=== PATIENT | male | born 1970 | race Two or more races ===

== ENCOUNTER 2018-12-29 17:10 | Inpatient (IN) | payer OTHER ==
[~2018-12-29] VITALS: Ht 165.1 cm; Wt 172.4 kg
--- NOTE | 2018-12-29 17:43 | NUR ---
ED Nurse Note: pt arrives from home via [facility] for c/o left shoulder area pain after having a heavy tool fall on it a few days ago.. lungs cta throughout. pt states he was also outside working a lot in heat and feels dehydrated. pt with voided dark yellow urine, sent to hold in lab. no other orders.
[2018-12-29] MEDS ORDERED: Aspirin Baby 81mg ORAL ONE (17:45)
[2018-12-29] MEDS ORDERED: Albuterol ud Inhalation HHN ONE (17:45)
--- NOTE | 2018-12-29 17:48 | NUR ---
ED Nurse Note: RT CALLED FOR BREATHING TX.
--- NOTE | 2018-12-29 17:50 | NUR ---
ED Nurse Note: pt noted to have yellow sclera bilat eyes and jaundice coloring to skin.
[2018-12-29 18:00] VITALS: BP 102/46
[2018-12-29] MEDS ORDERED: Morphine Sulfate 4mg/ml Inj (IV USE ONLY) IVP ONE (18:00)
--- NOTE | 2018-12-29 18:13 | Emergency Room Report ---
History of Present Illness General Chief Complaint: General Complaint Source: Patient Present Illness HPI Patient 48-year-old male brought in by EMS after increased chest discomfort. Patient reports having onset of symptoms approximate 4 days ago. He reports having a recent trauma to his chest and states that approximately 50 pound tiles fell to the left side of his chest and struck him. He reports having some increased difficulty with breathing. He reports having a prior history of chest discomfort which he describes as a central pressure. Allergies: Coded Allergies: No Known Allergies (Unverified , 12/29/18) Patient History Reviewed Nursing Documentation: PMH: Agreed; PSxH: Agreed Nursing Documentation-PMH Hx Asthma: Yes Review of Systems All Other Systems: negative except mentioned in HPI Physical Exam Vital Signs Date Time Temp Pulse Resp B/P (MAP) Pulse Ox O2 Delivery O2 Flow Rate FiO2 12/29/18 17:09 99.0 86 22 144/86 (105) 98 Room Air 12/29/18 17:45 21 Sp02 EP Interpretation: reviewed, normal General Appearance: normal inspection, alert, GCS 15, obese, Chronically Ill Head: atraumatic ENT: normal ENT inspection, hearing grossly normal, normal voice Neck: normal inspection, full range of motion, supple, no bony tend Respiratory: normal inspection, no respiratory distress, no retraction, wheezing Cardiovascular #1: regular rate, rhythm, no edema Gastrointestinal: normal inspection, normal bowel sounds, non tender, soft, no guarding, no hernia Genitourinary: no CVA tenderness Musculoskeletal: normal inspection, back normal, normal range of motion Neurologic: normal inspection, alert, oriented x3, responsive, station helper III-XII nml as tested, speech normal Psychiatric: normal inspection, judgement/insight normal, mood/affect normal Procedures Critical Care Time Critical Care Time Patient had a critical medical condition which untreated could potentially result in life or limb threatening injury. Total critical care time excluding procedures approximately 45 minutes. Medical Decision Making Diagnostic Impression: Primary Impression: ACS (acute coronary syndrome) Additional Impressions: Morbid obesity Anemia ER Course Patient presented for chest pain. Differential diagnosis include was not limited to myocardial infarction, peptic ulcer disease, aortic dissection, pulmonary embolism among others. Because of complexity of patient's case laboratory testing and imaging studies were ordered. Patient is noted to be short of breath as well as having chest discomfort. Patient was noted to have some recent trauma. X-ray imaging of the chest showed no evidence of fracture. Patient was given aspirin. Patient was noted to have some significant anemia and was admitted to the hospital for further monitoring and evaluation. Patient was typed and crossed for blood and was consented. Patient was discussed with Dr. Jerod Zuluaga for inpatient management due to panel physician Last Vital Signs Date Time Temp Pulse Resp B/P (MAP) Pulse Ox O2 Delivery O2 Flow Rate FiO2 12/29/18 17:59 80 18 99 Room Air 21 12/29/18 17:09 99.0 144/86 (105) Status: unchanged Disposition: ADMITTED INPATIENT Condition: Serious Referrals: NON PHYSICIAN (PCP) Britton Tariq MD Dec 29, 2018 18:13
--- NOTE | 2018-12-29 18:21 | NUR ---
ED Nurse Note: pt to radiology dept for further studies.
[2018-12-29 18:27] LABS: HEMATOCRIT 18.5 % (42.0-52.0); MEAN CORPUSCULAR VOLUME 120 FL (80-99); PLATELET COUNT 99 K/UL (150-450); RED BLOOD COUNT 1.54 M/UL (4.70-6.10); RED CELL DISTRIBUTION WIDTH 17.1 % (11.6-14.8); WHITE BLOOD COUNT 3.6 K/UL (4.8-10.8)
[2018-12-29 18:29] LABS: ANION GAP 10 mmol/L (5-15); BLOOD UREA NITROGEN 13 mg/dL (7-18); CALCIUM 8.8 MG/DL (8.5-10.1); CARBON DIOXIDE 25 MMOL/L (21-32); CHLORIDE 105 MMOL/L (98-107); POTASSIUM 3.7 MMOL/L (3.5-5.1); SODIUM 140 MMOL/L (136-145)
--- NOTE | 2018-12-29 18:37 | NUR ---
ED Nurse Note: pt returned from radiology
[2018-12-29 18:42] LABS: ALANINE AMINOTRANSFERASE 57 U/L (12-78); ALBUMIN 3.7 G/DL (3.4-5.0); ALBUMIN/GLOBULIN RATIO 1.2 (1.0-2.7); ALKALINE PHOSPHATASE 69 U/L (46-116); ASPARTATE AMINO TRANSFERASE 67 U/L (15-37); CKMB 0.7 NG/ML (0.0-3.6); CREATINE KINASE 108 U/L (26-308)
[2018-12-29 18:43] LABS: BILIRUBIN,DIRECT 0.6 MG/DL (0.0-0.3)
--- NOTE | 2018-12-29 18:51 | NUR ---
ED Nurse Note: michael bautista [facility] [phone]
--- NOTE | 2018-12-29 19:02 | NUR ---
ED Nurse Note: pt relates headache has decreased. no new c/o aware to remain npo until labs/radiology reuslted.
--- NOTE | 2018-12-29 19:05 | NUR ---
ED Nurse Note: Patient in bed moaning, is very uncomfortable. Patient provided with warm blankets. Patient was also given water, verified with ERMD it was ok.
[2018-12-29 19:07] LABS: HEMOGLOBIN 6.9 G/DL (14.2-18.0)
[2018-12-29 19:51] LABS: HEMATOCRIT 18.3 % (42.0-52.0); MEAN CORPUSCULAR VOLUME 122 FL (80-99); PLATELET COUNT 93 K/UL (150-450); RED BLOOD COUNT 1.51 M/UL (4.70-6.10); RED CELL DISTRIBUTION WIDTH 15.9 % (11.6-14.8); WHITE BLOOD COUNT 3.7 K/UL (4.8-10.8)
[2018-12-29 19:56] LABS: HEMOGLOBIN 6.8 G/DL (14.2-18.0)
[2018-12-29] MEDS ORDERED: Morphine Sulfate 2mg/ml Inj(IV/IM USE ONLY) IVP PRN ×2 (20:15→22:30)
[2018-12-29] MEDS ORDERED: LORazepam Inj 2mg/ml 1ml IV PRN (20:15)
[2018-12-29] MEDS ORDERED: Zolpidem 5mg tab ORAL PRN (20:15)
[2018-12-29] MEDS ORDERED: Miralax 17gm pkt ORAL PRN ×2 (20:15→22:30)
[2018-12-29] MEDS ORDERED: Dextrose 50% 25ml Syringe IV PRN (20:30)
[2018-12-29 21:34] VITALS: BP 119/47
[2018-12-29 21:49] VITALS: BP 123/45
--- NOTE | 2018-12-29 22:05 | NUR ---
ED Nurse Note: Report called into [facility], prior to transport to floor. Patient accompanied by RN and ERtech at this time.
[2018-12-29 22:15] VITALS: BP 111/55
--- NOTE | 2018-12-29 22:15 | NUR ---
NURSE NOTES: Received pt from ED via gurney. Pt is alert, AOx4. In no acute distress. IV line intact and patent. Pt is currently receiving 1 unit of PRBC from ED. VS stable. Placed pt on satellite project site monitor showing SR. Oriented pt to room and unit. Bed in lowest position, call light within reach. Admission orders noted and carried out.
[2018-12-29] MEDS ORDERED: dilTIAZem HCl 25mg/5ml Inj IV PRN (22:30)
[2018-12-29] MEDS ORDERED: Nitroglycerin Subl 0.4mg tab SL PRN (22:30)
[2018-12-29] MEDS ORDERED: Albuterol/Ipratropium 3ml neb HHN PRN (22:30)
[2018-12-29] MEDS ORDERED: Enalaprilat 2.5mg/2ml Inj IV PRN (22:30)
[2018-12-30] VITALS: BP 118/68
[2018-12-30] MEDS ORDERED: BENAZEPRIL HCL20 MG ORAL (00:02)
--- NOTE | 2018-12-30 01:05 | NUR ---
NURSE NOTES: Blood transfusion of 1 unit of PRBC completed. No reactions noted, VS stable.
[2018-12-30 04:00] VITALS: BP 102/42
--- NOTE | 2018-12-30 04:20 | NUR ---
NURSE NOTES: Blood transfusion of second unit of PRBC completed, for a total of 1 units. No reactions noted, VS stable.
[2018-12-30 06:48] LABS: HEMATOCRIT 22.6 % (42.0-52.0); HEMOGLOBIN 8.1 G/DL (14.2-18.0); MEAN CORPUSCULAR VOLUME 113 FL (80-99); PLATELET COUNT 91 K/UL (150-450); RED BLOOD COUNT 2.01 M/UL (4.70-6.10); RED CELL DISTRIBUTION WIDTH 26.4 % (11.6-14.8); WHITE BLOOD COUNT 3.9 K/UL (4.8-10.8)
--- NOTE | 2018-12-30 07:00 | NUR ---
NURSE NOTES: Nurse report given by BAMBI Olivo. Patient was awake, complained that he wasn't able to sleep several nights. Patient showed SOB, but denied chest pain. Bed at lowest position and break engaged, call light within reach. IV site is patent and flushed well, no sign of redness or tenderness. Breakfast was at bedside.
[2018-12-30 07:12] LABS: ALANINE AMINOTRANSFERASE 61 U/L (12-78); ALBUMIN 3.3 G/DL (3.4-5.0); ALKALINE PHOSPHATASE 72 U/L (46-116); ANION GAP 7 mmol/L (5-15); ASPARTATE AMINO TRANSFERASE 64 U/L (15-37); BILIRUBIN,TOTAL 1.8 MG/DL (0.2-1.0); BLOOD UREA NITROGEN 13 mg/dL (7-18); CALCIUM 8.8 MG/DL (8.5-10.1); CARBON DIOXIDE 27 MMOL/L (21-32); CHLORIDE 107 MMOL/L (98-107); CHOLESTEROL 124 MG/DL (< 200); HDL CHOLESTEROL 22 MG/DL (40-60); POTASSIUM 4.1 MMOL/L (3.5-5.1); SODIUM 141 MMOL/L (136-145); TRIGLYCERIDES 99 MG/DL (30-150)
[2018-12-30 07:15] LABS: BILIRUBIN,DIRECT 0.6 MG/DL (0.0-0.3)
--- NOTE | 2018-12-30 07:15 | NUR ---
HAND-OFF: Report given to BAMBI Wahl.
[2018-12-30] MEDS ORDERED: Enalaprilat 1.25mg/ml Inj IV PRN (07:30)
--- NOTE | 2018-12-30 07:40 | NUR ---
NURSE NOTES: HEEL BUILDER MACHINE recorded a low blood pressure of 80s systolic fo this patient. Went into room to assess patient. Pt said he is "feeling better today." Asked the patient if he felt dizzy to which he said he did feel a little dizzy. Checked blood pressure on left arm - 140/70. Checked on right arm - 125/78. Instructed patient to call if he feels dizzy or lightheaded. Pt is stable.
[2018-12-30 08:00] VITALS: BP 125/68
[2018-12-30] MEDS ORDERED: Aspirin Baby 81mg ORAL SCH (09:00)
--- NOTE | 2018-12-30 09:15 | NUR ---
NURSE NOTES: Pt complaining of 8/10 chest pain. This is the same pain he has had since admission. Pt does not want morphine. He only wants tylenol for his pain. Asked if we should ask doctor for Rhodes, he said no. He only wants tylenol.
--- NOTE | 2018-12-30 10:22 | NUR ---
CASE MANAGEMENT: INITIAL REVIEW 48 YO M TERESA FROM HOME CC: CP. ARMENDARIZ DIAZ. PMHx: ASTHMA SI:CP. ACS. T 99 HR 86 RR 22 B/P 144/86 SATS 98% ON RA WBC 3.6 HGB 6.9 HCT 18.5 GLU 113 TBILI 2 DBILI 0.6 AST 67 BNP 723 U TOX (THC) IS: MORPHINE IV X1 ZOFRAN IV X1 ALBUTEROL HHN X1 ASA PO X1 PATIENT ADMITTED TO TELE 12/29/2018 @ 1836 DCP: PATIENT TO BE DISCHARGED TO HOME ONCE MEDICALLY CLEARED. PLAN OF CARE: TRANSFUSE PRBCs 2D ECHO SERIAL TROPONIN Addendum: 12/30/18 at 1301 by Lu Talbot CM INTERQUAL MET
--- NOTE | 2018-12-30 10:41 | GI Initial Consult Note ---
History of Present Illness General Date patient seen: Dec 30, 2018 Time patient seen: 10:36 Reason for Hospitalization: General Complaint Referring physician: SANDOR ZAMBRANO Reason for Consultation: ANEMIA Present Illness HPI Patient 48-year-old male brought in by EMS after increased chest discomfort. Patient reports having onset of symptoms approximate 4 days ago. He reports having a recent trauma to his chest and states that approximately 50 pound tiles fell to the left side of his chest and struck him. He reports having some increased difficulty with breathing. He reports having a prior history of chest discomfort which he describes as a central pressure. GI consulted for anemia. Patient seen, awake alert and oriented x4 no apparent distress. Patient was admitted for severe chest pain secondary to trauma. Labs reviewed showed hemoglobin is 6.8, total bilirubin of 1.8 with direct bilirubin of 0.6. Urine toxicity positive for marijuana. The patient has no history of endoscopic or colonoscopy. Home Meds Reported Medications Benazepril Hcl* (BENAZEPRIL HCL*) 20 Mg Tablet, 25 MG ORAL EVERY 12 HOURS, TAB 12/30/18 Med list reviewed/reconciled: Yes Allergies: Coded Allergies: No Known Allergies (Unverified , 12/29/18) Patient History History Provided By: Patient, Medical Record PMH Narrative Hx Asthma: Yes Hypertension Morbid obesity Social History: Reports: drug use Review of Systems All Other Systems: negative except mentioned in HPI Physical Exam Vital Signs Date Time Temp Pulse Resp B/P (MAP) Pulse Ox O2 Delivery O2 Flow Rate FiO2 12/29/18 17:09 99.0 86 22 144/86 (105) 98 Room Air 12/29/18 17:45 21 Sp02 EP Interpretation: reviewed, normal Labs Laboratory Tests Test 12/29/18 17:54 12/29/18 19:31 12/30/18 06:10 White Blood Count 3.6 K/UL (4.8-10.8) L 3.7 K/UL (4.8-10.8) L 3.9 K/UL (4.8-10.8) L Red Blood Count 1.54 M/UL (4.70-6.10) L 1.51 M/UL (4.70-6.10) L 2.01 M/UL (4.70-6.10) L Hemoglobin 6.9 G/DL (14.2-18.0) *L 6.8 G/DL (14.2-18.0) *L 8.1 G/DL (14.2-18.0) L Hematocrit 18.5 % (42.0-52.0) L 18.3 % (42.0-52.0) L 22.6 % (42.0-52.0) L Mean Corpuscular Volume 120 FL (80-99) H 122 FL (80-99) H 113 FL (80-99) H Mean Corpuscular Hemoglobin 44.9 PG (27.0-31.0) H 45.1 PG (27.0-31.0) H 40.3 PG (27.0-31.0) H Mean Corpuscular Hemoglobin Concent 37.5 G/DL (32.0-36.0) H 37.1 G/DL (32.0-36.0) H 35.8 G/DL (32.0-36.0) Red Cell Distribution Width 17.1 % (11.6-14.8) H 15.9 % (11.6-14.8) H 26.4 % (11.6-14.8) H Platelet Count 99 K/UL (150-450) L 93 K/UL (150-450) L 91 K/UL (150-450) L Mean Platelet Volume 8.6 FL (6.5-10.1) 7.1 FL (6.5-10.1) 7.5 FL (6.5-10.1) Neutrophils (%) (Auto) % (45.0-75.0) % (45.0-75.0) % (45.0-75.0) Lymphocytes (%) (Auto) % (20.0-45.0) % (20.0-45.0) % (20.0-45.0) Monocytes (%) (Auto) % (1.0-10.0) % (1.0-10.0) % (1.0-10.0) Eosinophils (%) (Auto) % (0.0-3.0) % (0.0-3.0) % (0.0-3.0) Basophils (%) (Auto) % (0.0-2.0) % (0.0-2.0) % (0.0-2.0) Differential Total Cells Counted 100 100 100 Neutrophils % (Manual) 46 % (45-75) 44 % (45-75) L 45 % (45-75) Lymphocytes % (Manual) 43 % (20-45) 41 % (20-45) 39 % (20-45) Monocytes % (Manual) 6 % (1-10) 7 % (1-10) 6 % (1-10) Eosinophils % (Manual) 3 % (0-3) 7 % (0-3) H 9 % (0-3) H Basophils % (Manual) 2 % (0-2) 1 % (0-2) 1 % (0-2) Band Neutrophils 0 % (0-8) 0 % (0-8) 0 % (0-8) Platelet Estimate Decreased L Decreased L Decreased L Platelet Morphology Normal Normal Normal Hypochromasia 2+ 2+ 2+ Anisocytosis 2+ 2+ 4+ Macrocytosis 1+ 2+ 3+ Prothrombin Time 10.7 SEC (9.30-11.50) 10.3 SEC (9.30-11.50) Prothromb Time International Ratio 1.0 (0.9-1.1) 1.0 (0.9-1.1) Activated Partial Thromboplast Time 25 SEC (23-33) 27 SEC (23-33) Sodium Level 140 MMOL/L (136-145) 141 MMOL/L (136-145) Potassium Level 3.7 MMOL/L (3.5-5.1) 4.1 MMOL/L (3.5-5.1) Chloride Level 105 MMOL/L (98-107) 107 MMOL/L (98-107) Carbon Dioxide Level 25 MMOL/L (21-32) 27 MMOL/L (21-32) Anion Gap 10 mmol/L (5-15) 7 mmol/L (5-15) Blood Urea Nitrogen 13 mg/dL (7-18) 13 mg/dL (7-18) Creatinine 1.0 MG/DL (0.55-1.30) 1.0 MG/DL (0.55-1.30) Estimat Glomerular Filtration Rate > 60 mL/min (>60) > 60 mL/min (>60) Glucose Level 113 MG/DL (74-106) H 108 MG/DL (74-106) H Calcium Level 8.8 MG/DL (8.5-10.1) 8.8 MG/DL (8.5-10.1) Total Bilirubin 2.0 MG/DL (0.2-1.0) H 1.8 MG/DL (0.2-1.0) H Direct Bilirubin 0.6 MG/DL (0.0-0.3) H 0.6 MG/DL (0.0-0.3) H Aspartate Amino Transf (AST/SGOT) 67 U/L (15-37) H 64 U/L (15-37) H Alanine Aminotransferase (ALT/SGPT) 57 U/L (12-78) 61 U/L (12-78) Alkaline Phosphatase 69 U/L (46-116) 72 U/L (46-116) Total Creatine Kinase 108 U/L (26-308) Creatine Kinase MB 0.7 NG/ML (0.0-3.6) Creatine Kinase MB Relative Index 0.6 Troponin I 0.000 ng/mL (0.000-0.056) 0.001 ng/mL (0.000-0.056) Pro-B-Type Natriuretic Peptide 723 pg/mL (0-125) H Total Protein 6.7 G/DL (6.4-8.2) 6.7 G/DL (6.4-8.2) Albumin 3.7 G/DL (3.4-5.0) 3.3 G/DL (3.4-5.0) L Globulin 3.0 g/dL 3.4 g/dL Albumin/Globulin Ratio 1.2 (1.0-2.7) 1.0 (1.0-2.7) Lipase 157 U/L (73-393) Urine Opiates Screen Negative (NEGATIVE) Urine Barbiturates Screen Negative (NEGATIVE) Phencyclidine (PCP) Screen Negative (NEGATIVE) Urine Amphetamines Screen Negative (NEGATIVE) Urine Benzodiazepines Screen Negative (NEGATIVE) Urine Cocaine Screen Negative (NEGATIVE) Urine Marijuana (THC) Screen Positive (NEGATIVE) H Nucleated Red Blood Cells 1 /100 WBC Spherocytes 2+ C-Reactive Protein, Quantitative 2.6 mg/dL (0.00-0.90) H Triglycerides Level 99 MG/DL (30-150) Cholesterol Level 124 MG/DL (< 200) LDL Cholesterol 87 mg/dL (<100) HDL Cholesterol 22 MG/DL (40-60) L Cholesterol/HDL Ratio 5.6 (3.3-4.4) H Thyroid Stimulating Hormone (TSH) 3.576 uiU/mL (0.358-3.740) General Appearance: well appearing, no apparent distress, alert, obese Head: normocephalic EENT: PERRL/EOMI, normal ENT inspection Neck: supple Respiratory: normal breath sounds, no respiratory distress Cardiovascular: normal rate Gastrointestinal: normal inspection, non tender, soft, normal bowel sounds, non -distended Rectal: deferred Genitourinary: deferred Musculoskeletal: normal inspection, back normal Neurologic: normal inspection, alert, oriented x3, responsive Psychiatric: normal inspection, judgement/insight normal, memory normal Skin: normal inspection, normal color, no rash, warm/dry, palpation normal, well hydrated Lymphatic: normal inspection, no adenopathy Current Medications Current Medications Medications (Trade) Dose Ordered Sig/Luci Route PRN Reason Start Time Stop Time Status Last Admin Dose Admin Acetaminophen (Tylenol) 650 mg Q4H PRN ORAL fever 12/29/18 20:15 01/28/19 20:14 12/30/18 08:56 Acetaminophen (Tylenol) 650 mg Q4H PRN ORAL FEVER 12/29/18 22:30 01/28/19 22:29 Albuterol/ Ipratropium (Albuterol/ Ipratropium) 3 ml EVERY 4 HOURS PRN HHN Shortness of Breath 12/29/18 22:30 01/03/19 22:29 Aspirin (ASA) 162 mg DAILY ORAL 12/30/18 09:00 01/29/19 08:59 12/30/18 08:49 Dextrose (Dextrose 50%) 25 ml Q30M PRN IV Hypoglycemia 12/29/18 20:30 01/28/19 20:18 Dextrose (Dextrose 50%) 50 ml Q30M PRN IV hypoglycemia 12/29/18 20:30 01/28/19 20:29 Diltiazem HCl (Cardizem) 10 mg EVERY HOUR PRN IV heart rate more than 120, 12/29/18 22:30 01/28/19 22:29 Enalaprilat (Vasotec) 2.5 mg Q6H PRN IV sbp more than 160 12/30/18 07:30 01/28/19 22:29 Heparin Sodium (Porcine) (Heparin 5000 units/ml) 5,000 units EVERY 12 HOURS SUBQ 12/30/18 09:00 01/29/19 08:59 UNV Lorazepam (Ativan 2mg/ml 1ml) 0.5 mg Q4H PRN IV For Anxiety 12/29/18 20:15 01/05/19 20:14 Morphine Sulfate (Morphine Sulfate) 1 mg Q4H PRN IVP For Pain 12/29/18 20:15 01/05/19 20:14 Morphine Sulfate (Morphine Sulfate) 2 mg EVERY 4 HOURS PRN IVP severe Pain (Pain Scale 7-10) 12/29/18 22:30 01/05/19 22:29 Nitroglycerin (Ntg) 0.4 mg Q5M PRN SL Prn Chest Pain 12/29/18 22:30 01/28/19 22:29 Ondansetron HCl (Zofran) 4 mg Q6H PRN IVP Nausea & Vomiting 12/29/18 20:15 01/28/19 20:14 Ondansetron HCl (Zofran) 4 mg Q6H PRN IVP Nausea & Vomiting 12/29/18 22:30 01/28/19 22:29 Polyethylene Glycol (Miralax) 17 gm DAILYPRN PRN ORAL Constipation 12/29/18 22:30 01/28/19 22:29 Polyethylene Glycol (Miralax) 17 gm HSPRN PRN ORAL Constipation 12/29/18 20:15 01/28/19 20:14 Temazepam (Restoril) 15 mg HSPRN PRN ORAL Insomnia 12/29/18 22:30 01/05/19 22:29 GI: Plan Problems: (1) Anemia (2) Morbid obesity (3) Marijuana user (4) Chest pain Plan Follow-up cardiac work-up Plan for EGD and colonoscopy tomorrow Maintain clear liquid diet, n.p.o. at midnight anemia work up OB stool r/o GI bleed monitor H&H, prn transfusions bowel regimen ppi pain mgmt fu labs We will follow with additional recommendations postprocedure Discussed with Dr. Harper. Thank you for this patient referral, we will follow. The patient was seen and examined at bedside and all new and available data was reviewed in the patients chart. I agree with the above findings, impression and plan. (Patient seen earlier today. Signature stamp does not reflect patient encounter time.). - MD Gina ShelbyHonorhealth Deer Valley Medical CenterErvin WRAY Dec 30, 2018 10:41
[2018-12-30 12:00] VITALS: BP 126/68
--- NOTE | 2018-12-30 12:33 | Consultation ---
History of Present Illness General Date patient seen: Dec 30, 2018 Chief Complaint: General Complaint Referring physician: SANDOR ZAMBRANO Reason for Consultation: ANEMIA Present Illness HPI 48-year-old male with hx of morbid obesity, HTN brought in by EMS with CC of chest discomfort, starting approximately 4 days ago. He reports having a recent trauma to his chest and states that approximately 50 pound tiles fell to the left side of his chest and struck him. He reports having some increased difficulty with breathing. He was found to be severely anemic and admitted to telemetry for further evaluation. Meanwhile he has received 2 units of prbc. Allergies: Coded Allergies: No Known Allergies (Unverified , 12/29/18) Medication History Scheduled Benazepril Hcl* (Benazepril Hcl*), 25 MG ORAL EVERY 12 HOURS, (Reported) Patient History Healthcare decision maker Resuscitation status Full Code Advanced Directive on File Past Medical/Surgical History Past Medical/Surgical History: (1) History of hypertension (2) Morbid obesity Review of Systems All Other Systems: negative except mentioned in HPI Physical Exam General Appearance: WD/WN Lines, tubes and drains: peripheral HEENT: normocephalic, atraumatic Neck: non-tender, normal alignment, supple Respiratory/Chest: chest wall non-tender, lungs clear Breasts: no masses Cardiovascular/Chest: normal peripheral pulses, regular rhythm Abdomen: normal bowel sounds Genitourinary/Rectal: normal genital exam Extremities: normal range of motion Last 24 Hour Vital Signs Date Time Temp Pulse Resp B/P (MAP) Pulse Ox O2 Delivery O2 Flow Rate FiO2 12/30/18 12:00 98.3 72 20 126/68 (87) 99 12/30/18 09:56 72 20 96 Room Air 21 12/30/18 09:00 Room Air 12/30/18 08:00 98.4 77 20 125/68 (87) 98 12/30/18 08:00 70 12/30/18 04:00 71 12/30/18 04:00 98.4 70 20 102/42 (62) 98 12/30/18 00:00 68 12/30/18 00:00 98.1 68 18 118/68 (85) 95 12/29/18 22:30 Room Air 12/29/18 22:24 71 12/29/18 22:15 97.8 72 20 111/55 (73) 97 12/29/18 22:05 97.6 71 23 123/45 100 Room Air 21 12/29/18 21:49 97.6 71 23 123/45 100 Room Air 12/29/18 21:34 98.0 69 26 119/47 98 Room Air 12/29/18 18:00 75 18 Room Air 21 12/29/18 18:00 75 18 102/46 98 Room Air 12/29/18 17:59 80 18 99 Room Air 21 12/29/18 17:45 36 12/29/18 17:45 67 16 99 Room Air 21 12/29/18 17:45 67 16 99 Room Air 21 12/29/18 17:09 99.0 86 22 144/86 (105) 98 Room Air Intake and Output 12/29/18 12/30/18 19:00 07:00 Intake Total 0 ml 550 ml Output Total 350 ml Balance 0 ml 200 ml Intake Oral 0 ml Blood Product 550 ml Output Urine Total 350 ml # Voids 2 Laboratory Tests Test 12/29/18 17:54 12/29/18 19:31 12/30/18 06:10 White Blood Count 3.6 K/UL (4.8-10.8) L 3.7 K/UL (4.8-10.8) L 3.9 K/UL (4.8-10.8) L Red Blood Count 1.54 M/UL (4.70-6.10) L 1.51 M/UL (4.70-6.10) L 2.01 M/UL (4.70-6.10) L Hemoglobin 6.9 G/DL (14.2-18.0) *L 6.8 G/DL (14.2-18.0) *L 8.1 G/DL (14.2-18.0) L Hematocrit 18.5 % (42.0-52.0) L 18.3 % (42.0-52.0) L 22.6 % (42.0-52.0) L Mean Corpuscular Volume 120 FL (80-99) H 122 FL (80-99) H 113 FL (80-99) H Mean Corpuscular Hemoglobin 44.9 PG (27.0-31.0) H 45.1 PG (27.0-31.0) H 40.3 PG (27.0-31.0) H Mean Corpuscular Hemoglobin Concent 37.5 G/DL (32.0-36.0) H 37.1 G/DL (32.0-36.0) H 35.8 G/DL (32.0-36.0) Red Cell Distribution Width 17.1 % (11.6-14.8) H 15.9 % (11.6-14.8) H 26.4 % (11.6-14.8) H Platelet Count 99 K/UL (150-450) L 93 K/UL (150-450) L 91 K/UL (150-450) L Mean Platelet Volume 8.6 FL (6.5-10.1) 7.1 FL (6.5-10.1) 7.5 FL (6.5-10.1) Neutrophils (%) (Auto) % (45.0-75.0) % (45.0-75.0) % (45.0-75.0) Lymphocytes (%) (Auto) % (20.0-45.0) % (20.0-45.0) % (20.0-45.0) Monocytes (%) (Auto) % (1.0-10.0) % (1.0-10.0) % (1.0-10.0) Eosinophils (%) (Auto) % (0.0-3.0) % (0.0-3.0) % (0.0-3.0) Basophils (%) (Auto) % (0.0-2.0) % (0.0-2.0) % (0.0-2.0) Differential Total Cells Counted 100 100 100 Neutrophils % (Manual) 46 % (45-75) 44 % (45-75) L 45 % (45-75) Lymphocytes % (Manual) 43 % (20-45) 41 % (20-45) 39 % (20-45) Monocytes % (Manual) 6 % (1-10) 7 % (1-10) 6 % (1-10) Eosinophils % (Manual) 3 % (0-3) 7 % (0-3) H 9 % (0-3) H Basophils % (Manual) 2 % (0-2) 1 % (0-2) 1 % (0-2) Band Neutrophils 0 % (0-8) 0 % (0-8) 0 % (0-8) Platelet Estimate Decreased L Decreased L Decreased L Platelet Morphology Normal Normal Normal Hypochromasia 2+ 2+ 2+ Anisocytosis 2+ 2+ 4+ Macrocytosis 1+ 2+ 3+ Prothrombin Time 10.7 SEC (9.30-11.50) 10.3 SEC (9.30-11.50) Prothromb Time International Ratio 1.0 (0.9-1.1) 1.0 (0.9-1.1) Activated Partial Thromboplast Time 25 SEC (23-33) 27 SEC (23-33) Sodium Level 140 MMOL/L (136-145) 141 MMOL/L (136-145) Potassium Level 3.7 MMOL/L (3.5-5.1) 4.1 MMOL/L (3.5-5.1) Chloride Level 105 MMOL/L (98-107) 107 MMOL/L (98-107) Carbon Dioxide Level 25 MMOL/L (21-32) 27 MMOL/L (21-32) Anion Gap 10 mmol/L (5-15) 7 mmol/L (5-15) Blood Urea Nitrogen 13 mg/dL (7-18) 13 mg/dL (7-18) Creatinine 1.0 MG/DL (0.55-1.30) 1.0 MG/DL (0.55-1.30) Estimat Glomerular Filtration Rate > 60 mL/min (>60) > 60 mL/min (>60) Glucose Level 113 MG/DL (74-106) H 108 MG/DL (74-106) H Calcium Level 8.8 MG/DL (8.5-10.1) 8.8 MG/DL (8.5-10.1) Total Bilirubin 2.0 MG/DL (0.2-1.0) H 1.8 MG/DL (0.2-1.0) H Direct Bilirubin 0.6 MG/DL (0.0-0.3) H 0.6 MG/DL (0.0-0.3) H Aspartate Amino Transf (AST/SGOT) 67 U/L (15-37) H 64 U/L (15-37) H Alanine Aminotransferase (ALT/SGPT) 57 U/L (12-78) 61 U/L (12-78) Alkaline Phosphatase 69 U/L (46-116) 72 U/L (46-116) Total Creatine Kinase 108 U/L (26-308) Creatine Kinase MB 0.7 NG/ML (0.0-3.6) Creatine Kinase MB Relative Index 0.6 Troponin I 0.000 ng/mL (0.000-0.056) 0.001 ng/mL (0.000-0.056) Pro-B-Type Natriuretic Peptide 723 pg/mL (0-125) H Total Protein 6.7 G/DL (6.4-8.2) 6.7 G/DL (6.4-8.2) Albumin 3.7 G/DL (3.4-5.0) 3.3 G/DL (3.4-5.0) L Globulin 3.0 g/dL 3.4 g/dL Albumin/Globulin Ratio 1.2 (1.0-2.7) 1.0 (1.0-2.7) Lipase 157 U/L (73-393) Urine Opiates Screen Negative (NEGATIVE) Urine Barbiturates Screen Negative (NEGATIVE) Phencyclidine (PCP) Screen Negative (NEGATIVE) Urine Amphetamines Screen Negative (NEGATIVE) Urine Benzodiazepines Screen Negative (NEGATIVE) Urine Cocaine Screen Negative (NEGATIVE) Urine Marijuana (THC) Screen Positive (NEGATIVE) H Nucleated Red Blood Cells 1 /100 WBC Spherocytes 2+ C-Reactive Protein, Quantitative 2.6 mg/dL (0.00-0.90) H Triglycerides Level 99 MG/DL (30-150) Cholesterol Level 124 MG/DL (< 200) LDL Cholesterol 87 mg/dL (<100) HDL Cholesterol 22 MG/DL (40-60) L Cholesterol/HDL Ratio 5.6 (3.3-4.4) H Thyroid Stimulating Hormone (TSH) 3.576 uiU/mL (0.358-3.740) Height (Feet): 5 Height (Inches): 7.00 Weight (Pounds): 384 Medications Current Medications Medications (Trade) Dose Ordered Sig/Luci Route PRN Reason Start Time Stop Time Status Last Admin Dose Admin Acetaminophen (Tylenol) 650 mg Q4H PRN ORAL fever 12/29/18 20:15 01/28/19 20:14 12/30/18 08:56 Acetaminophen (Tylenol) 650 mg Q4H PRN ORAL FEVER 12/29/18 22:30 01/28/19 22:29 Albuterol/ Ipratropium (Albuterol/ Ipratropium) 3 ml EVERY 4 HOURS PRN HHN Shortness of Breath 12/29/18 22:30 01/03/19 22:29 Bisacodyl (Dulcolax) 10 mg ONCE ORAL 12/30/18 16:00 12/30/18 17:00 Dextrose (Dextrose 50%) 25 ml Q30M PRN IV Hypoglycemia 12/29/18 20:30 01/28/19 20:18 Dextrose (Dextrose 50%) 50 ml Q30M PRN IV hypoglycemia 12/29/18 20:30 01/28/19 20:29 Diltiazem HCl (Cardizem) 10 mg EVERY HOUR PRN IV heart rate more than 120, 12/29/18 22:30 01/28/19 22:29 Enalaprilat (Vasotec) 2.5 mg Q6H PRN IV sbp more than 160 12/30/18 07:30 01/28/19 22:29 Heparin Sodium (Porcine) (Heparin 5000 units/ml) 5,000 units EVERY 12 HOURS SUBQ 12/30/18 09:00 01/29/19 08:59 UNV Lorazepam (Ativan 2mg/ml 1ml) 0.5 mg Q4H PRN IV For Anxiety 12/29/18 20:15 01/05/19 20:14 Morphine Sulfate (Morphine Sulfate) 1 mg Q4H PRN IVP For Pain 12/29/18 20:15 01/05/19 20:14 Morphine Sulfate (Morphine Sulfate) 2 mg EVERY 4 HOURS PRN IVP severe Pain (Pain Scale 7-10) 12/29/18 22:30 01/05/19 22:29 Nitroglycerin (Ntg) 0.4 mg Q5M PRN SL Prn Chest Pain 12/29/18 22:30 01/28/19 22:29 Ondansetron HCl (Zofran) 4 mg Q6H PRN IVP Nausea & Vomiting 12/29/18 20:15 01/28/19 20:14 Ondansetron HCl (Zofran) 4 mg Q6H PRN IVP Nausea & Vomiting 12/29/18 22:30 01/28/19 22:29 Polyethylene Glycol (Miralax) 17 gm DAILYPRN PRN ORAL Constipation 12/29/18 22:30 01/28/19 22:29 Polyethylene Glycol (Miralax) 17 gm HSPRN PRN ORAL Constipation 12/29/18 20:15 01/28/19 20:14 Polyethylene Glycol/ Electrolytes (Nulytely) 4,000 ml ONCE ORAL 12/30/18 16:00 12/30/18 23:59 Temazepam (Restoril) 15 mg HSPRN PRN ORAL Insomnia 12/29/18 22:30 01/05/19 22:29 Assessment/Plan Problem List: (1) ACS (acute coronary syndrome) ICD Codes: I24.9 - Acute ischemic heart disease, unspecified SNOMED: 933467587 (2) Thrombocytopenia ICD Codes: D69.6 - Thrombocytopenia, unspecified SNOMED: 921583856 (3) Anemia ICD Codes: D64.9 - Anemia, unspecified SNOMED: 047841202 (4) Chest wall pain ICD Codes: R07.89 - Other chest pain SNOMED: 798908799 (5) History of hypertension ICD Codes: Z86.79 - Personal history of other diseases of the circulatory system SNOMED: 331224186 (6) Morbid obesity ICD Codes: E66.01 - Morbid (severe) obesity due to excess calories SNOMED: 552226348 (7) Marijuana user ICD Codes: F12.90 - Cannabis use, unspecified, uncomplicated SNOMED: 955420860 Assessment/Plan: serial ekg, troponin check OB prbc prn echocardiogram symptomatic treatment Sharon Garcia MD Dec 30, 2018 12:33
--- NOTE | 2018-12-30 13:15 | NUR ---
INSURANCE REVIEWS FAXED TO NO [employer] [employer]ER ASSIGNED AT THIS TIME PLEASE FAX THE REVIEW/CLINICAL P- [phone] F- [phone]...REVIEW/CLINICAL
--- NOTE | 2018-12-30 13:16 | Diagnostic Imaging Report ---
Indication: Chest pain Comparison: None A single view chest radiograph was obtained. Findings: Evaluation limited by body habitus. Cardiomegaly is present. Lungs are clear with normal vascularity. IMPRESSION: No acute disease. Limited study
--- NOTE | 2018-12-30 13:33 | Diagnostic Imaging Report ---
Indication: Left sided rib pain. Trauma. Findings: 4 views of the left chest wall was obtained for evaluation of the ribs. There is no acute fracture identified. There is no soft tissue swelling demonstrated. The lung is essentially clear. There is no pneumothorax. The costophrenic angle is sharp. Other osseous structures visualized are unremarkable. Impression: Negative left unilateral rib series
--- NOTE | 2018-12-30 14:36 | Consultation ---
History of Present Illness General Date patient seen: Dec 30, 2018 Chief Complaint: General Complaint Referring physician: SANDOR ZAMBRANO Reason for Consultation: ANEMIA Present Illness Allergies: Coded Allergies: No Known Allergies (Unverified , 12/29/18) Medication History Scheduled Benazepril Hcl* (Benazepril Hcl*), 25 MG ORAL EVERY 12 HOURS, (Reported) Patient History Healthcare decision maker Resuscitation status Full Code Advanced Directive on File Physical Exam Last 24 Hour Vital Signs Date Time Temp Pulse Resp B/P (MAP) Pulse Ox O2 Delivery O2 Flow Rate FiO2 12/30/18 12:00 98.3 72 20 126/68 (87) 99 12/30/18 09:56 72 20 96 Room Air 21 12/30/18 09:00 Room Air 12/30/18 08:00 98.4 77 20 125/68 (87) 98 12/30/18 08:00 70 12/30/18 04:00 71 12/30/18 04:00 98.4 70 20 102/42 (62) 98 12/30/18 00:00 68 12/30/18 00:00 98.1 68 18 118/68 (85) 95 12/29/18 22:30 Room Air 12/29/18 22:24 71 12/29/18 22:15 97.8 72 20 111/55 (73) 97 12/29/18 22:05 97.6 71 23 123/45 100 Room Air 21 12/29/18 21:49 97.6 71 23 123/45 100 Room Air 12/29/18 21:34 98.0 69 26 119/47 98 Room Air 12/29/18 18:00 75 18 Room Air 21 12/29/18 18:00 75 18 102/46 98 Room Air 12/29/18 17:59 80 18 99 Room Air 12/29/18 17:45 36 12/29/18 17:45 67 16 99 Room Air 21 12/29/18 17:45 67 16 99 Room Air 21 12/29/18 17:09 99.0 86 22 144/86 (105) 98 Room Air Intake and Output 12/29/18 12/30/18 19:00 07:00 Intake Total 0 ml 550 ml Output Total 350 ml Balance 0 ml 200 ml Intake Oral 0 ml Blood Product 550 ml Output Urine Total 350 ml # Voids 2 Laboratory Tests Test 12/29/18 17:54 12/29/18 19:31 12/30/18 06:10 White Blood Count 3.6 K/UL (4.8-10.8) L 3.7 K/UL (4.8-10.8) L 3.9 K/UL (4.8-10.8) L Red Blood Count 1.54 M/UL (4.70-6.10) L 1.51 M/UL (4.70-6.10) L 2.01 M/UL (4.70-6.10) L Hemoglobin 6.9 G/DL (14.2-18.0) *L 6.8 G/DL (14.2-18.0) *L 8.1 G/DL (14.2-18.0) L Hematocrit 18.5 % (42.0-52.0) L 18.3 % (42.0-52.0) L 22.6 % (42.0-52.0) L Mean Corpuscular Volume 120 FL (80-99) H 122 FL (80-99) H 113 FL (80-99) H Mean Corpuscular Hemoglobin 44.9 PG (27.0-31.0) H 45.1 PG (27.0-31.0) H 40.3 PG (27.0-31.0) H Mean Corpuscular Hemoglobin Concent 37.5 G/DL (32.0-36.0) H 37.1 G/DL (32.0-36.0) H 35.8 G/DL (32.0-36.0) Red Cell Distribution Width 17.1 % (11.6-14.8) H 15.9 % (11.6-14.8) H 26.4 % (11.6-14.8) H Platelet Count 99 K/UL (150-450) L 93 K/UL (150-450) L 91 K/UL (150-450) L Mean Platelet Volume 8.6 FL (6.5-10.1) 7.1 FL (6.5-10.1) 7.5 FL (6.5-10.1) Neutrophils (%) (Auto) % (45.0-75.0) % (45.0-75.0) % (45.0-75.0) Lymphocytes (%) (Auto) % (20.0-45.0) % (20.0-45.0) % (20.0-45.0) Monocytes (%) (Auto) % (1.0-10.0) % (1.0-10.0) % (1.0-10.0) Eosinophils (%) (Auto) % (0.0-3.0) % (0.0-3.0) % (0.0-3.0) Basophils (%) (Auto) % (0.0-2.0) % (0.0-2.0) % (0.0-2.0) Differential Total Cells Counted 100 100 100 Neutrophils % (Manual) 46 % (45-75) 44 % (45-75) L 45 % (45-75) Lymphocytes % (Manual) 43 % (20-45) 41 % (20-45) 39 % (20-45) Monocytes % (Manual) 6 % (1-10) 7 % (1-10) 6 % (1-10) Eosinophils % (Manual) 3 % (0-3) 7 % (0-3) H 9 % (0-3) H Basophils % (Manual) 2 % (0-2) 1 % (0-2) 1 % (0-2) Band Neutrophils 0 % (0-8) 0 % (0-8) 0 % (0-8) Platelet Estimate Decreased L Decreased L Decreased L Platelet Morphology Normal Normal Normal Hypochromasia 2+ 2+ 2+ Anisocytosis 2+ 2+ 4+ Macrocytosis 1+ 2+ 3+ Prothrombin Time 10.7 SEC (9.30-11.50) 10.3 SEC (9.30-11.50) Prothromb Time International Ratio 1.0 (0.9-1.1) 1.0 (0.9-1.1) Activated Partial Thromboplast Time 25 SEC (23-33) 27 SEC (23-33) Sodium Level 140 MMOL/L (136-145) 141 MMOL/L (136-145) Potassium Level 3.7 MMOL/L (3.5-5.1) 4.1 MMOL/L (3.5-5.1) Chloride Level 105 MMOL/L (98-107) 107 MMOL/L (98-107) Carbon Dioxide Level 25 MMOL/L (21-32) 27 MMOL/L (21-32) Anion Gap 10 mmol/L (5-15) 7 mmol/L (5-15) Blood Urea Nitrogen 13 mg/dL (7-18) 13 mg/dL (7-18) Creatinine 1.0 MG/DL (0.55-1.30) 1.0 MG/DL (0.55-1.30) Estimat Glomerular Filtration Rate > 60 mL/min (>60) > 60 mL/min (>60) Glucose Level 113 MG/DL (74-106) H 108 MG/DL (74-106) H Calcium Level 8.8 MG/DL (8.5-10.1) 8.8 MG/DL (8.5-10.1) Total Bilirubin 2.0 MG/DL (0.2-1.0) H 1.8 MG/DL (0.2-1.0) H Direct Bilirubin 0.6 MG/DL (0.0-0.3) H 0.6 MG/DL (0.0-0.3) H Aspartate Amino Transf (AST/SGOT) 67 U/L (15-37) H 64 U/L (15-37) H Alanine Aminotransferase (ALT/SGPT) 57 U/L (12-78) 61 U/L (12-78) Alkaline Phosphatase 69 U/L (46-116) 72 U/L (46-116) Total Creatine Kinase 108 U/L (26-308) Creatine Kinase MB 0.7 NG/ML (0.0-3.6) Creatine Kinase MB Relative Index 0.6 Troponin I 0.000 ng/mL (0.000-0.056) 0.001 ng/mL (0.000-0.056) Pro-B-Type Natriuretic Peptide 723 pg/mL (0-125) H Total Protein 6.7 G/DL (6.4-8.2) 6.7 G/DL (6.4-8.2) Albumin 3.7 G/DL (3.4-5.0) 3.3 G/DL (3.4-5.0) L Globulin 3.0 g/dL 3.4 g/dL Albumin/Globulin Ratio 1.2 (1.0-2.7) 1.0 (1.0-2.7) Lipase 157 U/L (73-393) Urine Opiates Screen Negative (NEGATIVE) Urine Barbiturates Screen Negative (NEGATIVE) Phencyclidine (PCP) Screen Negative (NEGATIVE) Urine Amphetamines Screen Negative (NEGATIVE) Urine Benzodiazepines Screen Negative (NEGATIVE) Urine Cocaine Screen Negative (NEGATIVE) Urine Marijuana (THC) Screen Positive (NEGATIVE) H Nucleated Red Blood Cells 1 /100 WBC Spherocytes 2+ C-Reactive Protein, Quantitative 2.6 mg/dL (0.00-0.90) H Triglycerides Level 99 MG/DL (30-150) Cholesterol Level 124 MG/DL (< 200) LDL Cholesterol 87 mg/dL (<100) HDL Cholesterol 22 MG/DL (40-60) L Cholesterol/HDL Ratio 5.6 (3.3-4.4) H Thyroid Stimulating Hormone (TSH) 3.576 uiU/mL (0.358-3.740) Height (Feet): 5 Height (Inches): 7.00 Weight (Pounds): 384 Medications Current Medications Medications (Trade) Dose Ordered Sig/Luci Route PRN Reason Start Time Stop Time Status Last Admin Dose Admin Acetaminophen (Tylenol) 650 mg Q4H PRN ORAL fever 12/29/18 20:15 01/28/19 20:14 12/30/18 08:56 Acetaminophen (Tylenol) 650 mg Q4H PRN ORAL FEVER 12/29/18 22:30 01/28/19 22:29 Albuterol/ Ipratropium (Albuterol/ Ipratropium) 3 ml EVERY 4 HOURS PRN HHN Shortness of Breath 12/29/18 22:30 01/03/19 22:29 Bisacodyl (Dulcolax) 10 mg ONCE ORAL 12/30/18 16:00 12/30/18 17:00 Dextrose (Dextrose 50%) 25 ml Q30M PRN IV Hypoglycemia 12/29/18 20:30 01/28/19 20:18 Dextrose (Dextrose 50%) 50 ml Q30M PRN IV hypoglycemia 12/29/18 20:30 01/28/19 20:29 Diltiazem HCl (Cardizem) 10 mg EVERY HOUR PRN IV heart rate more than 120, 12/29/18 22:30 01/28/19 22:29 Enalaprilat (Vasotec) 2.5 mg Q6H PRN IV sbp more than 160 12/30/18 07:30 01/28/19 22:29 Heparin Sodium (Porcine) (Heparin 5000 units/ml) 5,000 units EVERY 12 HOURS SUBQ 12/30/18 21:00 01/29/19 20:59 Lorazepam (Ativan 2mg/ml 1ml) 0.5 mg Q4H PRN IV For Anxiety 12/29/18 20:15 01/05/19 20:14 Morphine Sulfate (Morphine Sulfate) 1 mg Q4H PRN IVP For Pain 12/29/18 20:15 01/05/19 20:14 Morphine Sulfate (Morphine Sulfate) 2 mg EVERY 4 HOURS PRN IVP severe Pain (Pain Scale 7-10) 12/29/18 22:30 01/05/19 22:29 Nitroglycerin (Ntg) 0.4 mg Q5M PRN SL Prn Chest Pain 12/29/18 22:30 01/28/19 22:29 Ondansetron HCl (Zofran) 4 mg Q6H PRN IVP Nausea & Vomiting 12/29/18 20:15 01/28/19 20:14 Ondansetron HCl (Zofran) 4 mg Q6H PRN IVP Nausea & Vomiting 12/29/18 22:30 01/28/19 22:29 Polyethylene Glycol (Miralax) 17 gm DAILYPRN PRN ORAL Constipation 12/29/18 22:30 01/28/19 22:29 Polyethylene Glycol (Miralax) 17 gm HSPRN PRN ORAL Constipation 12/29/18 20:15 01/28/19 20:14 Polyethylene Glycol/ Electrolytes (Nulytely) 4,000 ml ONCE ORAL 12/30/18 16:00 12/30/18 23:59 Temazepam (Restoril) 15 mg HSPRN PRN ORAL Insomnia 12/29/18 22:30 01/05/19 22:29 Assessment/Plan Assessment/Plan: HEME/ONC CONSULTATION DOS: 12/31/2018 REFERRING MD: Sandor Zambrano REASON FOR CONSULT: Anemia HPI 48-year-old male with hx of morbid obesity, HTN brought in by EMS with CC of chest discomfort, starting approximately 4 days ago. He reports having a recent trauma to his chest and states that approximately 50 pound tiles fell to the left side of his chest and struck him. He reports having some increased difficulty with breathing. He was found to be severely anemic and admitted to telemetry for further evaluation. He has received 2 units of prbc. Heme/Onc services were consulted for the evaluation and management of anemia PAST MEDICAL HISTORY: See HPI above PAST SURGICAL HISTORY: Unknown FAMILY HISTORY: Noncontributory SOCIAL HISTORY: Unknown Physical Exam General Appearance: WD/WN Lines, tubes and drains: peripheral HEENT: normocephalic, atraumatic Neck: non-tender, normal alignment, supple Respiratory/Chest: chest wall non-tender, lungs clear Breasts: no masses Cardiovascular/Chest: normal peripheral pulses, regular rhythm Abdomen: normal bowel sounds Genitourinary/Rectal: normal genital exam Extremities: normal range of motion Laboratory Tests Test 12/29/18 17:54 12/29/18 19:31 12/30/18 06:10 White Blood Count 3.6 K/UL (4.8-10.8) L 3.7 K/UL (4.8-10.8) L 3.9 K/UL (4.8-10.8) L Red Blood Count 1.54 M/UL (4.70-6.10) L 1.51 M/UL (4.70-6.10) L 2.01 M/UL (4.70-6.10) L Hemoglobin 6.9 G/DL (14.2-18.0) *L 6.8 G/DL (14.2-18.0) *L 8.1 G/DL (14.2-18.0) L Hematocrit 18.5 % (42.0-52.0) L 18.3 % (42.0-52.0) L 22.6 % (42.0-52.0) L Mean Corpuscular Volume 120 FL (80-99) H 122 FL (80-99) H 113 FL (80-99) H Mean Corpuscular Hemoglobin 44.9 PG (27.0-31.0) H 45.1 PG (27.0-31.0) H 40.3 PG (27.0-31.0) H Mean Corpuscular Hemoglobin Concent 37.5 G/DL (32.0-36.0) H 37.1 G/DL (32.0-36.0) H 35.8 G/DL (32.0-36.0) Red Cell Distribution Width 17.1 % (11.6-14.8) H 15.9 % (11.6-14.8) H 26.4 % (11.6-14.8) H Platelet Count 99 K/UL (150-450) L 93 K/UL (150-450) L 91 K/UL (150-450) L Mean Platelet Volume 8.6 FL (6.5-10.1) 7.1 FL (6.5-10.1) 7.5 FL (6.5-10.1) Neutrophils (%) (Auto) % (45.0-75.0) % (45.0-75.0) % (45.0-75.0) Lymphocytes (%) (Auto) % (20.0-45.0) % (20.0-45.0) % (20.0-45.0) Monocytes (%) (Auto) % (1.0-10.0) % (1.0-10.0) % (1.0-10.0) Eosinophils (%) (Auto) % (0.0-3.0) % (0.0-3.0) % (0.0-3.0) Basophils (%) (Auto) % (0.0-2.0) % (0.0-2.0) % (0.0-2.0) Differential Total Cells Counted 100 100 100 Neutrophils % (Manual) 46 % (45-75) 44 % (45-75) L 45 % (45-75) Lymphocytes % (Manual) 43 % (20-45) 41 % (20-45) 39 % (20-45) Monocytes % (Manual) 6 % (1-10) 7 % (1-10) 6 % (1-10) Eosinophils % (Manual) 3 % (0-3) 7 % (0-3) H 9 % (0-3) H Basophils % (Manual) 2 % (0-2) 1 % (0-2) 1 % (0-2) Band Neutrophils 0 % (0-8) 0 % (0-8) 0 % (0-8) Platelet Estimate Decreased L Decreased L Decreased L Platelet Morphology Normal Normal Normal Hypochromasia 2+ 2+ 2+ Anisocytosis 2+ 2+ 4+ Macrocytosis 1+ 2+ 3+ Prothrombin Time 10.7 SEC (9.30-11.50) 10.3 SEC (9.30-11.50) Prothromb Time International Ratio 1.0 (0.9-1.1) 1.0 (0.9-1.1) Activated Partial Thromboplast Time 25 SEC (23-33) 27 SEC (23-33) Sodium Level 140 MMOL/L (136-145) 141 MMOL/L (136-145) Potassium Level 3.7 MMOL/L (3.5-5.1) 4.1 MMOL/L (3.5-5.1) Chloride Level 105 MMOL/L (98-107) 107 MMOL/L (98-107) Carbon Dioxide Level 25 MMOL/L (21-32) 27 MMOL/L (21-32) Anion Gap 10 mmol/L (5-15) 7 mmol/L (5-15) Blood Urea Nitrogen 13 mg/dL (7-18) 13 mg/dL (7-18) Creatinine 1.0 MG/DL (0.55-1.30) 1.0 MG/DL (0.55-1.30) Estimat Glomerular Filtration Rate > 60 mL/min (>60) > 60 mL/min (>60) Glucose Level 113 MG/DL (74-106) H 108 MG/DL (74-106) H Calcium Level 8.8 MG/DL (8.5-10.1) 8.8 MG/DL (8.5-10.1) Total Bilirubin 2.0 MG/DL (0.2-1.0) H 1.8 MG/DL (0.2-1.0) H Direct Bilirubin 0.6 MG/DL (0.0-0.3) H 0.6 MG/DL (0.0-0.3) H Aspartate Amino Transf (AST/SGOT) 67 U/L (15-37) H 64 U/L (15-37) H Alanine Aminotransferase (ALT/SGPT) 57 U/L (12-78) 61 U/L (12-78) Alkaline Phosphatase 69 U/L (46-116) 72 U/L (46-116) Total Creatine Kinase 108 U/L (26-308) Creatine Kinase MB 0.7 NG/ML (0.0-3.6) Creatine Kinase MB Relative Index 0.6 Troponin I 0.000 ng/mL (0.000-0.056) 0.001 ng/mL (0.000-0.056) Pro-B-Type Natriuretic Peptide 723 pg/mL (0-125) H Total Protein 6.7 G/DL (6.4-8.2) 6.7 G/DL (6.4-8.2) Albumin 3.7 G/DL (3.4-5.0) 3.3 G/DL (3.4-5.0) L Globulin 3.0 g/dL 3.4 g/dL Albumin/Globulin Ratio 1.2 (1.0-2.7) 1.0 (1.0-2.7) Lipase 157 U/L (73-393) Urine Opiates Screen Negative (NEGATIVE) Urine Barbiturates Screen Negative (NEGATIVE) Phencyclidine (PCP) Screen Negative (NEGATIVE) Urine Amphetamines Screen Negative (NEGATIVE) Urine Benzodiazepines Screen Negative (NEGATIVE) Urine Cocaine Screen Negative (NEGATIVE) Urine Marijuana (THC) Screen Positive (NEGATIVE) H Nucleated Red Blood Cells 1 /100 WBC Spherocytes 2+ C-Reactive Protein, Quantitative 2.6 mg/dL (0.00-0.90) H Triglycerides Level 99 MG/DL (30-150) Cholesterol Level 124 MG/DL (< 200) LDL Cholesterol 87 mg/dL (<100) HDL Cholesterol 22 MG/DL (40-60) L Cholesterol/HDL Ratio 5.6 (3.3-4.4) H Thyroid Stimulating Hormone (TSH) 3.576 uiU/mL (0.358-3.740) Last 24 Hour Vital Signs Date Time Temp Pulse Resp B/P (MAP) Pulse Ox O2 Delivery O2 Flow Rate FiO2 12/30/18 12:00 98.3 72 20 126/68 (87) 99 12/30/18 09:56 72 20 96 Room Air 21 12/30/18 09:00 Room Air 12/30/18 08:00 98.4 77 20 125/68 (87) 98 12/30/18 08:00 70 12/30/18 04:00 71 12/30/18 04:00 98.4 70 20 102/42 (62) 98 12/30/18 00:00 68 12/30/18 00:00 98.1 68 18 118/68 (85) 95 12/29/18 22:30 Room Air 12/29/18 22:24 71 12/29/18 22:15 97.8 72 20 111/55 (73) 97 12/29/18 22:05 97.6 71 23 123/45 100 Room Air 21 12/29/18 21:49 97.6 71 23 123/45 100 Room Air 12/29/18 21:34 98.0 69 26 119/47 98 Room Air 12/29/18 18:00 75 18 Room Air 21 12/29/18 18:00 75 18 102/46 98 Room Air 12/29/18 17:59 80 18 99 Room Air 12/29/18 17:45 36 12/29/18 17:45 67 16 99 Room Air 21 12/29/18 17:45 67 16 99 Room Air 21 12/29/18 17:09 99.0 86 22 144/86 (105) 98 Room Air LABS: wbc 3.9 hgb 8.1 plt 91 ASSESSMENT AND PLAN # Pancytopenia -- multiple etiologies could be related to underlying liver disease, medication-induced, infection versus viral syndrome --> peripheral smear has been ordered and does not show significant abnormalities --> Medications have been reviewed --> Continue to monitor for improvement, trend cbc --> Hep panel and HIV have been ordered --> US abd ordered to r/o cirrhosis and hepatosplenomegaly --> reverse isolation if ANC is <2000 --> Give neupogen if ANC <1000 --> Transfuse if hgb <7, with 1 unit prbc --> consider bone marrow biopsy if no other causes are found --> Blood tx: 12/29, 12/30, # Coagulation defect, multifactorial usually related to poor PO intake versus medications, versus hepatitis v cirrhosis --> administer Vitamin K if patient is bleeding or FFP if the INR is >10 --> hold off on ffp unless active procedure/bleeding, first begin with vit K 10 --> mixing study as needed --> per GI eval EGD and COLO # ACS. # Chest wall pain. Cardiology is following, appreciate recs --> serial ekg, troponin # History of hypertension # Morbid obesity The time the note is entered does not reflect the time the patient was exmanined. I greatly appreciate the consultation. Eduardo Wheeler MD Dec 30, 2018 14:36
--- NOTE | 2018-12-30 14:52 | Cardiology Report ---
APPROVED REPORT EXAM: Two-dimensional and M-mode echocardiogram with Doppler and color Doppler. INDICATION LV FUNCTION M-Mode DIMENSIONS IVSd1.2 (0.7-1.1cm)Left Atrium (MM)2.7 (1.6-4.0cm) LVDd4.8 (3.5-5.6cm)Aortic Root4.2 (2.0-3.7cm) PWd0.9 (0.7-1.1cm)Aortic Cusp Exc.2.7 (1.5-2.0cm) IVSs1.4 cm LVDs3.5 (2.5-4.0cm) PWs1.6 cm Other Information Technically limited study due to body habitus. Normal left ventricular chamber size. This study preclueds anylysis of LV wall motion nad EF. No evidence of left ventricular hypertrophy . Anterior Echo-free space, may be due to pericardial fat or effusion. All other cardiac chamber sizes are within normal limits. Aortic valve calcification with normal cusp excursion . Mildly thickened mitral valve leaflets with normal excursion. Mild mitral annulus and aortic root calcification. Pulmonic valve not well visualized. IVC at normal size with physiologic collapse . A color flow and spectral Doppler study was performed and revealed: No aortic insufficiency . Mitral inflow indicates normal left ventricular diastolic function. Trace mitral regurgitation. Mild tricuspid regurgitation. Tricuspid systolic velocities suggests peak right ventricular systolic pressure of 20mmHg. Trace pulmonic regurgitation .
[2018-12-30 16:00] VITALS: BP 136/72
[2018-12-30] MEDS ORDERED: Bisacodyl EC 5mg tab ORAL SCH (16:00)
[2018-12-30] MEDS ORDERED: Nulytely 4L ORAL SCH (16:00)
--- NOTE | 2018-12-30 17:30 | History and Physical Report ---
DATE OF ADMISSION: 12/29/2018 DATE AND TIME SEEN: 12/30/2018 at 12 noon. CONSULTANTS: 1. Sharon Garcia M.D. 2. Devon Harper M.D. 3. Eduardo Wheeler M.D. 4. Abiodun Rosas M.D. CHIEF COMPLAINT: Chest pain and anemia. BRIEF HISTORY: This is a 48-year-old male, who lives at home, presented with chest pain yesterday, dull and radiated to the neck area. No dizziness. No shortness of breath. The patient came to [facility], diagnosed with the above, and anemia 6.8, admitted to telemetry for further care. Currently, slightly anxious in bed, no complaint. REVIEW OF SYSTEMS: Slight chest pain. Slight short of breath. No nausea, vomiting, or diarrhea. PAST MEDICAL HISTORY: Include hypertension. PAST SURGICAL HISTORY: Appendectomy. ALLERGIES: No known drug allergies. MEDICATIONS: Include bisacodyl, polyethylene glycol, heparin, albuterol, nitroglycerin, morphine, Tylenol, Zofran, temazepam, and enalapril. SOCIAL HISTORY: No smoking. No alcohol. No intravenous drug abuse. FAMILY HISTORY: Noncontributory. PHYSICAL EXAMINATION: GENERAL: Calm in room, oriented x3, slightly tired. VITAL SIGNS: Temperature is 98 degrees, pulse 72, respirations 20, and blood pressure 128/68. CARDIOVASCULAR: No murmur. LUNGS: Distant and clear. ABDOMEN: Bowel sounds positive. Nontender. Nondistended. EXTREMITIES: No cyanosis, clubbing, or edema. NEUROLOGIC: The patient moves all extremities, slightly weak. LABORATORY AND DIAGNOSTIC DATA: White count 3.9, H and H 8.1/22, and platelets 91. BMP shows glucose 108. Troponin 0.001. Albumin 3.3. INR 1.0. PTT 27. Urine tox positive for marijuana. ASSESSMENT: 1. Chest pain. 2. Morbidly obese. 3. Anemia. 4. Hypertension. 5. Pancytopenia. PLAN: 1. Blood pressure and pain control. 2. Dietary evaluation. 3. Resume home medications. 4. Troponin q.8 h. x3. 5. EKG in a.m. 6. Hematology evaluation. 7. PT and dietary evaluation. 8. CBC and BMP in morning. Jerod Zuluaga D.O. DR: RUT JOB#: [id number] CC:
--- NOTE | 2018-12-30 19:23 | NUR ---
NURSE NOTES: Report given to BAMBI Olivo. Pt is in stable condition; plan of care endorsed.
--- NOTE | 2018-12-30 19:36 | NUR ---
NURSE NOTES: Patient received at change fo shift from BAMBI Wahl. Patient is A/O x4 in no acute distress. Will continue to monitor plan of care.
--- NOTE | 2018-12-30 19:53 | Cardiac Electrophysiology PN ---
Subjective Subjective [id number] Objective Last 24 Hour Vital Signs Date Time Temp Pulse Resp B/P (MAP) Pulse Ox O2 Delivery O2 Flow Rate FiO2 12/30/18 16:00 59 12/30/18 16:00 98.3 64 20 136/72 (93) 97 12/30/18 12:00 98.3 72 20 126/68 (87) 99 12/30/18 12:00 66 12/30/18 09:56 72 20 96 Room Air 21 12/30/18 09:00 Room Air 12/30/18 08:00 98.4 77 20 125/68 (87) 98 12/30/18 08:00 70 12/30/18 04:00 71 12/30/18 04:00 98.4 70 20 102/42 (62) 98 12/30/18 00:00 68 12/30/18 00:00 98.1 68 18 118/68 (85) 95 12/29/18 22:30 Room Air 12/29/18 22:24 71 12/29/18 22:15 97.8 72 20 111/55 (73) 97 12/29/18 22:05 97.6 71 23 123/45 100 Room Air 21 12/29/18 21:49 97.6 71 23 123/45 100 Room Air 12/29/18 21:34 98.0 69 26 119/47 98 Room Air Intake and Output 12/29/18 12/30/18 19:00 07:00 Intake Total 0 ml 550 ml Output Total 350 ml Balance 0 ml 200 ml Intake Oral 0 ml Blood Product 550 ml Output Urine Total 350 ml # Voids 2 Laboratory Tests Test 12/30/18 06:10 12/30/18 18:15 White Blood Count 3.9 K/UL (4.8-10.8) L Red Blood Count 2.01 M/UL (4.70-6.10) L Hemoglobin 8.1 G/DL (14.2-18.0) L Hematocrit 22.6 % (42.0-52.0) L Mean Corpuscular Volume 113 FL (80-99) H Mean Corpuscular Hemoglobin 40.3 PG (27.0-31.0) H Mean Corpuscular Hemoglobin Concent 35.8 G/DL (32.0-36.0) Red Cell Distribution Width 26.4 % (11.6-14.8) H Platelet Count 91 K/UL (150-450) L Mean Platelet Volume 7.5 FL (6.5-10.1) Neutrophils (%) (Auto) % (45.0-75.0) Lymphocytes (%) (Auto) % (20.0-45.0) Monocytes (%) (Auto) % (1.0-10.0) Eosinophils (%) (Auto) % (0.0-3.0) Basophils (%) (Auto) % (0.0-2.0) Differential Total Cells Counted 100 Neutrophils % (Manual) 45 % (45-75) Lymphocytes % (Manual) 39 % (20-45) Monocytes % (Manual) 6 % (1-10) Eosinophils % (Manual) 9 % (0-3) H Basophils % (Manual) 1 % (0-2) Band Neutrophils 0 % (0-8) Nucleated Red Blood Cells 1 /100 WBC Platelet Estimate Decreased L Platelet Morphology Normal Hypochromasia 2+ Anisocytosis 4+ Macrocytosis 3+ Spherocytes 2+ Prothrombin Time 10.3 SEC (9.30-11.50) 10.5 SEC (9.30-11.50) Prothromb Time International Ratio 1.0 (0.9-1.1) 1.0 (0.9-1.1) Activated Partial Thromboplast Time 27 SEC (23-33) Sodium Level 141 MMOL/L (136-145) Potassium Level 4.1 MMOL/L (3.5-5.1) Chloride Level 107 MMOL/L (98-107) Carbon Dioxide Level 27 MMOL/L (21-32) Anion Gap 7 mmol/L (5-15) Blood Urea Nitrogen 13 mg/dL (7-18) Creatinine 1.0 MG/DL (0.55-1.30) Estimat Glomerular Filtration Rate > 60 mL/min (>60) Glucose Level 108 MG/DL (74-106) H Calcium Level 8.8 MG/DL (8.5-10.1) Total Bilirubin 1.8 MG/DL (0.2-1.0) H Direct Bilirubin 0.6 MG/DL (0.0-0.3) H Aspartate Amino Transf (AST/SGOT) 64 U/L (15-37) H Alanine Aminotransferase (ALT/SGPT) 61 U/L (12-78) Alkaline Phosphatase 72 U/L (46-116) Troponin I 0.001 ng/mL (0.000-0.056) C-Reactive Protein, Quantitative 2.6 mg/dL (0.00-0.90) H Total Protein 6.7 G/DL (6.4-8.2) Albumin 3.3 G/DL (3.4-5.0) L Globulin 3.4 g/dL Albumin/Globulin Ratio 1.0 (1.0-2.7) Triglycerides Level 99 MG/DL (30-150) Cholesterol Level 124 MG/DL (< 200) LDL Cholesterol 87 mg/dL (<100) HDL Cholesterol 22 MG/DL (40-60) L Cholesterol/HDL Ratio 5.6 (3.3-4.4) H Thyroid Stimulating Hormone (TSH) 3.576 uiU/mL (0.358-3.740) Fibrinogen Pending Hepatitis A IgM Antibody Pending Hepatitis B Surface Antigen Pending Hepatitis B Core IgM Antibody Pending Hepatitis C Antibody Pending HIV (1&2) Antibody Rapid Negative (NEGATIVE) Abiodun Rosas MD Dec 30, 2018 19:53
[2018-12-30 20:00] VITALS: BP 131/56
[2018-12-30] MEDS: Heparin 5000 units/ml inj SUBQ SCH (20:17)
--- NOTE | 2018-12-30 22:15 | Consultation ---
DATE OF CONSULTATION: 12/30/2018 NOTE: "POOR AUDIO QUALITY" CARDIOLOGY CONSULTATION CONSULTING PHYSICIAN: Abiodun Rosas M.D. REFERRING PHYSICIAN: Jerod Zuluaga D.O. REASON FOR CONSULTATION: Management of hypertension and chest pain. HISTORY OF PRESENT ILLNESS: The patient is a 48-year-old gentleman with history of hypertension and morbid obesity, who came to the emergency room complaining of chest discomfort that started four days earlier. The patient stated he had recent trauma to his chest. Apparently, 50 pounds of towels fell on the left side of his chest and struck him. The patient also complained of increased difficulty breathing. The patient was found to be severely anemic with hemoglobin in the 6 range and was admitted to telemetry for further care and evaluation. echocardiogram was performed, however, very poor acoustic windows, but normal left ventricular systolic function to the extent that was seen. REVIEW OF SYSTEMS: Negative other than what was mentioned in the history of present illness. PAST MEDICAL HISTORY: Hypertension. MEDICATIONS: At home, include benazepril. SOCIAL HISTORY: He lives at home. Does not smoke or drink alcohol. PHYSICAL EXAMINATION: VITAL SIGNS: Blood pressure 136/72, pulse 64, respirations 18, and temperature 98.3. HEAD AND NECK: Shows no JVD. LUNGS: Clear. CARDIOVASCULAR: Shows regular S1 and S2 with no gallop or murmur. ABDOMEN: Soft. EXTREMITIES: No pitting edema. LABORATORY AND DIAGNOSTIC DATA: His labs show white count of 3.9, hemoglobin initially was 6.9 and increased to 8.1, platelet count of 91,000. His sodium is 141, potassium 4.1, BUN of 13, creatinine of 1, and glucose of 108. Troponin negative x2. BNP 723. Tox-screen is positive for marijuana. ASSESSMENT AND PLAN: 1. Chest pain. This is due to trauma to his chest. His troponins are negative. EKG does not show any acute ischemic changes. Echocardiogram does not show any pericardial effusion. 2. History of hypertension. The patient is on p.r.n. enalapril but currently blood pressure is stable. 3. Severe anemia. Hemoglobin in 6 range. The patient was evaluated by Dr. Harper. Stool OB is pending. He will be undergoing EGD and colonoscopy in the morning. 4. Morbid obesity. Thank you very much doctor for allowing me to participate in the care of this patient. Please do not hesitate to contact me for any questions regarding my evaluation. Abiodun Rosas M.D. DR: Xiomara JOB#: [id number] CC:
[2018-12-31] VITALS (9 sets, daily range): BP systolic 92–150; BP diastolic 44–71
--- NOTE | 2018-12-31 07:20 | NUR ---
NURSE NOTES: Nurse report given by BAMBI Olivo. Patient is sleeping and comfortable. No sign of distress or SOB. Bed at lowest position, break engaged and call light within reach. Will continue to monitor.
--- NOTE | 2018-12-31 07:21 | NUR ---
HAND-OFF: Report given to BAMBI Wahl.
--- NOTE | 2018-12-31 07:29 | NUR ---
CASE MANAGEMENT: REVIEW 12/31/2018 SI:CP. ACS. T 97.3 HR 63 RR 18 B/P 150/71 SATS 100% ON RA AML PENDING IS: HEPARIN SUBQ Q12H TELE STATUS DCP: PATIENT TO BE DISCHARGED TO HOME ONCE MEDICALLY CLEARED. PLAN OF CARE: 2D ECHO >>> Echocardiogram does not show any pericardial effusion. SERIAL TROPONIN GI CONSULT >> EGD and colonoscopy US ABD
--- NOTE | 2018-12-31 07:39 | NUR ---
INSURANCE REVIEWS FAXED TO NO CAR INSPECTION AND REPAIR MANAGER ASSIGNED AT THIS TIME PLEASE FAX THE REVIEW/CLINICAL P- [phone] F- [phone]...REVIEW/CLINICAL
[2018-12-31 07:54] LABS: HEMOGLOBIN 8.7 G/DL (14.2-18.0); MEAN CORPUSCULAR VOLUME 110 FL (80-99); PLATELET COUNT 91 K/UL (150-450); RED BLOOD COUNT 2.19 M/UL (4.70-6.10); RED CELL DISTRIBUTION WIDTH 25.7 % (11.6-14.8); WHITE BLOOD COUNT 3.8 K/UL (4.8-10.8)
[2018-12-31 07:55] LABS: ALANINE AMINOTRANSFERASE 68 U/L (12-78); ALBUMIN 3.8 G/DL (3.4-5.0); ALBUMIN/GLOBULIN RATIO 1.2 (1.0-2.7); ALKALINE PHOSPHATASE 76 U/L (46-116); ANION GAP 7 mmol/L (5-15); ASPARTATE AMINO TRANSFERASE 75 U/L (15-37); BILIRUBIN,TOTAL 2.1 MG/DL (0.2-1.0); BLOOD UREA NITROGEN 12 mg/dL (7-18); CALCIUM 9.1 MG/DL (8.5-10.1); CARBON DIOXIDE 29 MMOL/L (21-32); CHLORIDE 104 MMOL/L (98-107); CREATININE 0.9 MG/DL (0.55-1.30); FERRITIN 734 NG/ML (8-388); SODIUM 140 MMOL/L (136-145)
[2018-12-31 07:56] LABS: BILIRUBIN,DIRECT 0.6 MG/DL (0.0-0.3)
--- NOTE | 2018-12-31 08:26 | Anethesia Preoperative Eval ---
Anesthesia Pre-op PMH/ROS General Date of Evaluation: Dec 31, 2018 Time of Evaluation: 08:23 Anesthesiologist: miguel ASA Score: ASA 3 Mallampati Score Class I : Soft palate, uvula, fauces, pillars visible Class II: Soft palate, uvula, fauces visible Class III: Soft palate, base of uvula visible Class IV: Only hard plate visible Mallampati Classification: Class II Surgeon: eliazar Diagnosis: anemia Surgical Procedure: egd/colonoscopy Anesthesia History: none Social History: current smoker, drug use - marijuana use Family History: no anesthesia problems Allergies: Coded Allergies: No Known Allergies (Unverified , 12/29/18) Medications: see eMAR Patient NPO?: Yes Past Medical History Cardiovascular: Reports: HTN, other - acute coronary syndrome Pulmonary: Reports: asthma Hematology/Immune: Reports: anemia, other - thrombocytopenia Musculoskeletal/Integumentary: Reports: other - chest wall pain Other: obesity Anesthesia Pre-op Phys. Exam Physician Exam Last Vital Signs Date Time Temp Pulse Resp B/P (MAP) Pulse Ox O2 Delivery O2 Flow Rate FiO2 12/31/18 04:00 66 12/31/18 04:00 97.6 18 123/68 (86) 95 12/30/18 21:00 Room Air 12/30/18 20:22 21 Constitutional: NAD Neurologic: CN 2-12 intact Cardiovascular: RRR Respiratory: CTA Gastrointestinal: S/NT/ND Airway Exam Mallampati Score: Class II MO: limited Neck: short TMD: 2fb ROM: limited Anesthesia Pre-op A/P Labs Hematology Test 12/31/18 06:58 White Blood Count Pending Red Blood Count Pending Hemoglobin Pending Hematocrit Pending Mean Corpuscular Volume Pending Mean Corpuscular Hemoglobin Pending Mean Corpuscular Hemoglobin Concent Pending Red Cell Distribution Width Pending Platelet Count Pending Mean Platelet Volume Pending Neutrophils (%) (Auto) Pending Lymphocytes (%) (Auto) Pending Monocytes (%) (Auto) Pending Eosinophils (%) (Auto) Pending Basophils (%) (Auto) Pending Erythrocyte Sedimentation Rate Pending Reticulocyte Count Pending Coagulation Test 12/30/18 18:15 12/31/18 06:58 Prothrombin Time 10.5 SEC (9.30-11.50) Pending Prothromb Time International Ratio 1.0 (0.9-1.1) Pending Fibrinogen 429 mg/dL (200-400) H Activated Partial Thromboplast Time Pending Chemistry Test 12/30/18 20:00 12/31/18 06:58 Troponin I 0.000 ng/mL (0.000-0.056) 0.003 ng/mL (0.000-0.056) Sodium Level 140 MMOL/L (136-145) Potassium Level 4.0 MMOL/L (3.5-5.1) Chloride Level 104 MMOL/L (98-107) Carbon Dioxide Level 29 MMOL/L (21-32) Anion Gap 7 mmol/L (5-15) Blood Urea Nitrogen 12 mg/dL (7-18) Creatinine 0.9 MG/DL (0.55-1.30) Estimat Glomerular Filtration Rate > 60 mL/min (>60) Glucose Level 100 MG/DL (74-106) Calcium Level 9.1 MG/DL (8.5-10.1) Iron Level Pending Unsaturated Iron Binding Pending Ferritin 734 NG/ML (8-388) H Total Bilirubin 2.1 MG/DL (0.2-1.0) H Direct Bilirubin 0.6 MG/DL (0.0-0.3) H Aspartate Amino Transf (AST/SGOT) 75 U/L (15-37) H Alanine Aminotransferase (ALT/SGPT) 68 U/L (12-78) Alkaline Phosphatase 76 U/L (46-116) Lactate Dehydrogenase 1796 U/L (81-234) H Total Protein 7.0 G/DL (6.4-8.2) Albumin 3.8 G/DL (3.4-5.0) Globulin 3.2 g/dL Albumin/Globulin Ratio 1.2 (1.0-2.7) Carcinoembryonic Antigen Pending Vitamin B12 Level Pending Folate Pending Risk Assessment & Plan Assessment: asa3 Plan: mac Status Change Before Surgery: No Pre-Antibiotics Drug: Leslye Mccary MD Dec 31, 2018 08:26
[2018-12-31] MEDS ORDERED: DiphenhydrAMINE 50mg/ml Inj IVP PRN (08:30)
[2018-12-31] MEDS ORDERED: fentaNYL 100 mcg/2 mL IV PRN (08:30)
[2018-12-31] MEDS ORDERED: Atropine Sulfate 0.4mg/ml inj IVP PRN (08:30)
[2018-12-31 08:42] LABS: % IRON SATURATION 36 % (15-50); IRON 107 ug/dL (50-175); TOTAL IRON BINDING CAPACITY 295 ug/dL (250-450)
[2018-12-31] MEDS: Heparin 5000 units/ml inj SUBQ SCH ×2 (08:42→20:00)
--- NOTE | 2018-12-31 08:59 | General Progress Note ---
Assessment/Plan Problem List: (1) ACS (acute coronary syndrome) ICD Codes: I24.9 - Acute ischemic heart disease, unspecified SNOMED: 980862168 (2) Morbid obesity ICD Codes: E66.01 - Morbid (severe) obesity due to excess calories SNOMED: 120058310 (3) Anemia ICD Codes: D64.9 - Anemia, unspecified SNOMED: 015364929 (4) Chest pain ICD Codes: R07.9 - Chest pain, unspecified SNOMED: 86687336 (5) History of hypertension ICD Codes: Z86.79 - Personal history of other diseases of the circulatory system SNOMED: 458258133 (6) Thrombocytopenia ICD Codes: D69.6 - Thrombocytopenia, unspecified SNOMED: 335486623 Status: stable, progressing Assessment/Plan: bp pain control cardio heme f/u cbc bmp am Subjective Constitutional: Reports: weakness Allergies: Coded Allergies: No Known Allergies (Unverified , 12/29/18) All Systems: reviewed and negative except above Subjective sleepy getting us abd Objective Last 24 Hour Vital Signs Date Time Temp Pulse Resp B/P (MAP) Pulse Ox O2 Delivery O2 Flow Rate FiO2 12/31/18 04:00 66 12/31/18 04:00 97.6 66 18 123/68 (86) 95 12/31/18 00:00 63 12/31/18 00:00 97.3 63 18 150/71 (97) 100 12/30/18 21:00 Room Air 12/30/18 20:22 65 20 97 Room Air 21 12/30/18 20:00 98.0 62 18 131/56 (81) 98 12/30/18 20:00 62 12/30/18 16:00 59 12/30/18 16:00 98.3 64 20 136/72 (93) 97 12/30/18 12:00 98.3 72 20 126/68 (87) 99 12/30/18 12:00 66 12/30/18 09:56 72 20 96 Room Air 21 12/30/18 09:00 Room Air Intake and Output 12/30/18 12/31/18 19:00 07:00 Intake Total 1620 ml Balance 1620 ml Intake Oral 1620 ml # Voids 3 4 Laboratory Tests 12/30/18 18:15: Prothrombin Time 10.5, Prothromb Time International Ratio 1.0, Fibrinogen 429H, Hepatitis A IgM Antibody [Pending], Hepatitis B Surface Antigen [Pending], Hepatitis B Core IgM Antibody [Pending], Hepatitis C Antibody [Pending], HIV (1& 2) Antibody Rapid Negative 12/30/18 20:00: Troponin I 0.000 12/31/18 00:55: Stool Occult Blood [Pending] 12/31/18 06:58: Prothrombin Time [Pending], Prothromb Time International Ratio [Pending], Troponin I 0.003, White Blood Count 3.8L, Red Blood Count 2.19L, Hemoglobin 8.7L , Hematocrit 24.0L, Mean Corpuscular Volume 110H, Mean Corpuscular Hemoglobin 39.6H, Mean Corpuscular Hemoglobin Concent 36.1H, Red Cell Distribution Width 25.7H, Platelet Count 91L, Mean Platelet Volume 8.9, Neutrophils (%) (Auto) , Lymphocytes (%) (Auto) , Monocytes (%) (Auto) , Eosinophils (%) (Auto) , Basophils (%) (Auto) , Neutrophils % (Manual) [Pending], Lymphocytes % (Manual) [Pending], Platelet Estimate [Pending], Platelet Morphology [Pending], Erythrocyte Sedimentation Rate 80H, Reticulocyte Count [Pending], Activated Partial Thromboplast Time [Pending], Sodium Level 140, Potassium Level 4.0, Chloride Level 104, Carbon Dioxide Level 29, Anion Gap 7, Blood Urea Nitrogen 12 , Creatinine 0.9, Estimat Glomerular Filtration Rate > 60, Glucose Level 100, Calcium Level 9.1, Iron Level 107, Total Iron Binding Capacity 295, Percent Iron Saturation 36, Unsaturated Iron Binding 188, Ferritin 734H, Total Bilirubin 2.1H, Direct Bilirubin 0.6H, Aspartate Amino Transf (AST/SGOT) 75H, Alanine Aminotransferase (ALT/SGPT) 68, Alkaline Phosphatase 76, Lactate Dehydrogenase 1796H, Total Protein 7.0, Albumin 3.8, Globulin 3.2, Albumin/ Globulin Ratio 1.2, Carcinoembryonic Antigen [Pending], Vitamin B12 Level < 80L , Folate 36.6 Height (Feet): 5 Height (Inches): 5.00 Weight (Pounds): 380 General Appearance: lethargic EENT: normal ENT inspection Neck: normal alignment Cardiovascular: normal peripheral pulses, normal rate, regular rhythm Respiratory/Chest: chest wall non-tender, lungs clear, normal breath sounds Abdomen: normal bowel sounds, non tender, soft Extremities: normal inspection Edema: no edema noted Arm (L), no edema noted Arm (R), no edema noted Leg (L), no edema noted Leg (R), no edema noted Pedal (L), no edema noted Pedal (R), no edema noted Generalized Neurologic: motor weakness Skin: normal pigmentation, warm/dry Jerod Zuluaga DO Dec 31, 2018 08:59
[2018-12-31] MEDS ORDERED: Lidocaine 1% MPF 10mg/ml 5ml ONE (10:30)
[2018-12-31] MEDS ORDERED: Propofol 200mg/20ml IV ONE (10:30)
--- NOTE | 2018-12-31 10:42 | Pre-Procedure Note/Attestation ---
Pre-Procedure Note/Attestation Complete Prior to Procedure Planned Procedure: not applicable Procedure Narrative: esophagogastroduodenoscopy and coloncopy Indications for Procedure Pre-Operative Diagnosis: abd pain, anemia Attestation I attest that I discussed the nature of the procedure; its benefits; risks and complications; and alternatives (and the risks and benefits of such alternatives ), prior to the procedure, with the patient (or the patient's legal architectural representative). I attest that, if there was a reasonable possibility of needing a blood transfusion, the patient (or the patient's legal architectural representative) was given the [facility] standardized written summary, pursuant to the Arnaldo Garrochales Blood Safety Act ([place] Health and Safety Code # 1645, as amended). I attest that I re-evaluated the patient just prior to the surgery and that there has been no change in the patient's H&P, except as documented below: Devon Harper MD Dec 31, 2018 10:42
[2018-12-31] MEDS ORDERED: NS 500ML IVPB ONE (11:05)
--- NOTE | 2018-12-31 11:25 | Diagnostic Imaging Report ---
APPROVED REPORT CPT Code: 61745 Present Symptoms Comments: Screening BILATERAL: Imaging reveals a patent deep venous system bilaterally. There is no evidence of thrombus within the common femoral, superficial femoral, popliteal or tibial segments. The greater saphenous veins are within normal limits. Doppler indicates normal spontaneous flow within these segments.
--- NOTE | 2018-12-31 11:26 | Endoscopy Procedure Note ---
Endoscopy Procedure Note General Indication for Procedure: anemia Procedures Performed: EGD, colonoscopy Operative Findings/Diagnosis: hemorrhoids, gastritis Specimen: yes Pt Tolerated Procedure Well: Yes Estimated Blood Loss: none Anesthesia Anesthesiologist: miguel Anesthesia: MAC Inserted Devices Implant(s) used?: No Quality Quality of Bowel Preparation: Good GI Core Measures 50 yrs or older w/o bx or poly: Not Applicable 10yrs. F/U recommended: Not Applicable Devon Harper MD Dec 31, 2018 11:26
--- NOTE | 2018-12-31 11:49 | Diagnostic Imaging Report ---
Indication: Abdominal pain Technique: Grayscale and duplex Doppler imaging of the abdomen performed. Comparison: None Findings: The liver is enlarged measuring about 18 to 19 cm. Doppler interrogation of the main portal vein shows patency with hepatopedal, monophasic flow. There is no biliary ductal dilatation identified. The CBD measures less than 5 mm. The spleen is enlarged measuring between 13 and 14 cm. Gallbladder is unremarkable. No gallstones or wall thickening identified. Sonographic Ballard's sign was negative per technologist. There demonstrated part of the pancreas, aorta and IVC show no definite abnormalities though partially obscured due to bowel gas. Both kidneys appear unremarkable. There is no hydronephrosis. IMPRESSION: Mild hepatosplenomegaly.
--- NOTE | 2018-12-31 12:30 | Pulmonology Progress Note ---
Assessment/Plan Problems: (1) ACS (acute coronary syndrome) (2) Thrombocytopenia (3) Anemia (4) Chest wall pain (5) History of hypertension (6) Morbid obesity (7) Marijuana user Assessment/Plan s/p prbc might need bone marrow biopsy, anemia is not because of liver disease, since INR is normal symptomatic treatment weight loss Subjective ROS Limited/Unobtainable: No Constitutional: Reports: no symptoms HEENT: Repors: no symptoms Respiratory: Reports: no symptoms Allergies: Coded Allergies: No Known Allergies (Unverified , 12/29/18) Objective Last 24 Hour Vital Signs Date Time Temp Pulse Resp B/P (MAP) Pulse Ox O2 Delivery O2 Flow Rate FiO2 12/31/18 11:55 98.0 65 17 98/46 100 Nasal Cannula 3 12/31/18 11:46 65 21 100/46 100 Nasal Cannula 3 12/31/18 11:41 62 18 92/49 100 Nasal Cannula 3 12/31/18 11:36 97.7 63 18 99/44 100 Nasal Cannula 3 12/31/18 09:00 Room Air 12/31/18 08:00 68 12/31/18 08:00 98.3 72 20 120/55 (76) 96 12/31/18 07:27 66 20 95 Room Air 21 12/31/18 04:00 66 12/31/18 04:00 97.6 66 18 123/68 (86) 95 12/31/18 00:00 63 12/31/18 00:00 97.3 63 18 150/71 (97) 100 12/30/18 21:00 Room Air 12/30/18 20:22 65 20 97 Room Air 21 12/30/18 20:00 98.0 62 18 131/56 (81) 98 12/30/18 20:00 62 12/30/18 16:00 59 12/30/18 16:00 98.3 64 20 136/72 (93) 97 Intake and Output 12/30/18 12/31/18 19:00 07:00 Intake Total 1620 ml Balance 1620 ml Intake Oral 1620 ml # Voids 3 4 General Appearance: WD/WN Respiratory/Chest: chest wall non-tender, lungs clear Cardiovascular: normal peripheral pulses, normal rate Abdomen: normal bowel sounds, soft, non tender Extremities: no cyanosis Skin: no rash, no ulcers Laboratory Tests 12/30/18 18:15: Prothrombin Time 10.5, Prothromb Time International Ratio 1.0, Fibrinogen 429H, Hepatitis A IgM Antibody Negative, Hepatitis B Surface Antigen Negative, Hepatitis B Core IgM Antibody Negative, Hepatitis C Antibody <0.1, HIV (1&2) Antibody Rapid Negative 12/30/18 20:00: Troponin I 0.000 12/31/18 00:55: Stool Occult Blood Negative 12/31/18 06:58: Prothrombin Time 10.5, Prothromb Time International Ratio 1.0, Troponin I 0.003 , White Blood Count 3.8L, Red Blood Count 2.19L, Hemoglobin 8.7L, Hematocrit 24.0L, Mean Corpuscular Volume 110H, Mean Corpuscular Hemoglobin 39.6H, Mean Corpuscular Hemoglobin Concent 36.1H, Red Cell Distribution Width 25.7H, Platelet Count 91L, Mean Platelet Volume 8.9, Neutrophils (%) (Auto) , Lymphocytes (%) (Auto) , Monocytes (%) (Auto) , Eosinophils (%) (Auto) , Basophils (%) (Auto) , Differential Total Cells Counted 100, Neutrophils % ( Manual) 39L, Lymphocytes % (Manual) 45, Monocytes % (Manual) 3, Eosinophils % ( Manual) 11H, Basophils % (Manual) 1, Myelocytes % 1H, Band Neutrophils 0, Nucleated Red Blood Cells 1, Platelet Estimate DecreasedL, Platelet Morphology Normal, Anisocytosis 3+, Macrocytosis 2+, Erythrocyte Sedimentation Rate 80H, Reticulocyte Count [Pending], Activated Partial Thromboplast Time 27, Sodium Level 140, Potassium Level 4.0, Chloride Level 104, Carbon Dioxide Level 29, Anion Gap 7, Blood Urea Nitrogen 12, Creatinine 0.9, Estimat Glomerular Filtration Rate > 60, Glucose Level 100, Calcium Level 9.1, Iron Level 107, Total Iron Binding Capacity 295, Percent Iron Saturation 36, Unsaturated Iron Binding 188, Ferritin 734H, Total Bilirubin 2.1H, Direct Bilirubin 0.6H, Aspartate Amino Transf (AST/SGOT) 75H, Alanine Aminotransferase (ALT/SGPT) 68, Alkaline Phosphatase 76, Lactate Dehydrogenase 1796H, Total Protein 7.0, Albumin 3.8, Globulin 3.2, Albumin/Globulin Ratio 1.2, Carcinoembryonic Antigen [Pending], Vitamin B12 Level < 80L, Folate 36.6 Current Medications Medications (Trade) Dose Ordered Sig/Luci Route PRN Reason Start Time Stop Time Status Last Admin Dose Admin Acetaminophen (Tylenol) 650 mg Q4H PRN ORAL FEVER 12/29/18 22:30 01/28/19 22:29 Al Hydroxide/Mg Hydroxide (Mylanta) 15 ml Q1H PRN ORAL gi upset 12/31/18 08:30 12/31/18 16:00 Albuterol/ Ipratropium (Albuterol/ Ipratropium) 3 ml EVERY 4 HOURS PRN HHN Shortness of Breath 12/29/18 22:30 01/03/19 22:29 Atropine Sulfate (Atropine 0.4mg/ ml) 0.5 mg Q5M PRN IVP HR less than 45 BPM 12/31/18 08:30 12/31/18 16:00 Dextrose (Dextrose 50%) 25 ml Q30M PRN IV Hypoglycemia 12/29/18 20:30 01/28/19 20:18 Dextrose (Dextrose 50%) 50 ml Q30M PRN IV hypoglycemia 12/29/18 20:30 01/28/19 20:29 Diltiazem HCl (Cardizem) 10 mg EVERY HOUR PRN IV heart rate more than 120, 12/29/18 22:30 01/28/19 22:29 Diphenhydramine HCl (Benadryl) 25 mg Q15M PRN IVP Itching 12/31/18 08:30 12/31/18 16:00 Enalaprilat (Vasotec) 2.5 mg Q6H PRN IV sbp more than 160 12/30/18 07:30 01/28/19 22:29 Fentanyl Citrate (Sublimaze 100 mcg/2 mL) 25 mcg Q10M PRN IV Moderate Pain (Pain Scale 4-6) 12/31/18 08:30 12/31/18 16:00 Heparin Sodium (Porcine) (Heparin 5000 units/ml) 5,000 units EVERY 12 HOURS SUBQ 12/30/18 21:00 01/29/19 20:59 Hydralazine HCl (Apresoline) 5 mg Q30M PRN IV SBP>160 /DBP>90 12/31/18 08:30 12/31/18 16:00 Lorazepam (Ativan 2mg/ml 1ml) 0.5 mg Q4H PRN IV For Anxiety 12/29/18 20:15 01/05/19 20:14 Morphine Sulfate (Morphine Sulfate) 1 mg Q4H PRN IVP For Pain 12/29/18 20:15 01/05/19 20:14 Morphine Sulfate (Morphine Sulfate) 2 mg EVERY 4 HOURS PRN IVP severe Pain (Pain Scale 7-10) 12/29/18 22:30 01/05/19 22:29 Nitroglycerin (Ntg) 0.4 mg Q5M PRN SL Prn Chest Pain 12/29/18 22:30 01/28/19 22:29 Ondansetron HCl (Zofran) 4 mg Q1H PRN IVP Nausea & Vomiting 12/31/18 08:30 12/31/18 16:00 Ondansetron HCl (Zofran) 4 mg Q6H PRN IVP Nausea & Vomiting 12/29/18 22:30 01/28/19 22:29 Polyethylene Glycol (Miralax) 17 gm DAILYPRN PRN ORAL Constipation 12/29/18 22:30 01/28/19 22:29 Temazepam (Restoril) 15 mg HSPRN PRN ORAL Insomnia 12/29/18 22:30 01/05/19 22:29 Sharon Garcia MD Dec 31, 2018 12:30
--- NOTE | 2018-12-31 12:31 | NUR ---
P.T Note: Pt unavailable for P.T evaluation. Pt is out for test/procedure. Will reattempt as schedule permits.
--- NOTE | 2018-12-31 12:33 | Cardiac Electrophysiology PN ---
Assessment/Plan Assessment/Plan 1. Chest pain. This is due to trauma to his chest. His troponins are negative. EKG does not show any acute ischemic changes. Echocardiogram does not show any pericardial effusion. 2. History of hypertension. The patient is on p.r.n. enalapril 3. Severe anemia. Hemoglobin in 6 range. The patient was evaluated by Dr. Harper. S/P EGD and colonoscopy today by Dr Harper 4. Morbid obesity. TELLY RN and Dr Garcia Subjective Subjective Had EGD and colonoscopy that showed Hemorrhoid and Gastritis Objective Last 24 Hour Vital Signs Date Time Temp Pulse Resp B/P (MAP) Pulse Ox O2 Delivery O2 Flow Rate FiO2 12/31/18 11:55 98.0 65 17 98/46 100 Nasal Cannula 3 12/31/18 11:46 65 21 100/46 100 Nasal Cannula 3 12/31/18 11:41 62 18 92/49 100 Nasal Cannula 3 12/31/18 11:36 97.7 63 18 99/44 100 Nasal Cannula 3 12/31/18 09:00 Room Air 12/31/18 08:00 68 12/31/18 08:00 98.3 72 20 120/55 (76) 96 12/31/18 07:27 66 20 95 Room Air 21 12/31/18 04:00 66 12/31/18 04:00 97.6 66 18 123/68 (86) 95 12/31/18 00:00 63 12/31/18 00:00 97.3 63 18 150/71 (97) 100 12/30/18 21:00 Room Air 12/30/18 20:22 65 20 97 Room Air 21 12/30/18 20:00 98.0 62 18 131/56 (81) 98 12/30/18 20:00 62 12/30/18 16:00 59 12/30/18 16:00 98.3 64 20 136/72 (93) 97 Intake and Output 12/30/18 12/31/18 19:00 07:00 Intake Total 1620 ml Balance 1620 ml Intake Oral 1620 ml # Voids 3 4 Laboratory Tests Test 12/30/18 18:15 12/30/18 20:00 12/31/18 00:55 12/31/18 06:58 Prothrombin Time 10.5 SEC (9.30-11.50) 10.5 SEC (9.30-11.50) Prothromb Time International Ratio 1.0 (0.9-1.1) 1.0 (0.9-1.1) Fibrinogen 429 mg/dL (200-400) H Hepatitis A IgM Antibody Negative (Negative) Hepatitis B Surface Antigen Negative (Negative) Hepatitis B Core IgM Antibody Negative (Negative) Hepatitis C Antibody <0.1 s/co ratio HIV (1&2) Antibody Rapid Negative (NEGATIVE) Troponin I 0.000 ng/mL (0.000-0.056) 0.003 ng/mL (0.000-0.056) Stool Occult Blood Negative (NEGATIVE) White Blood Count 3.8 K/UL (4.8-10.8) L Red Blood Count 2.19 M/UL (4.70-6.10) L Hemoglobin 8.7 G/DL (14.2-18.0) L Hematocrit 24.0 % (42.0-52.0) L Mean Corpuscular Volume 110 FL (80-99) H Mean Corpuscular Hemoglobin 39.6 PG (27.0-31.0) H Mean Corpuscular Hemoglobin Concent 36.1 G/DL (32.0-36.0) H Red Cell Distribution Width 25.7 % (11.6-14.8) H Platelet Count 91 K/UL (150-450) L Mean Platelet Volume 8.9 FL (6.5-10.1) Neutrophils (%) (Auto) % (45.0-75.0) Lymphocytes (%) (Auto) % (20.0-45.0) Monocytes (%) (Auto) % (1.0-10.0) Eosinophils (%) (Auto) % (0.0-3.0) Basophils (%) (Auto) % (0.0-2.0) Differential Total Cells Counted 100 Neutrophils % (Manual) 39 % (45-75) L Lymphocytes % (Manual) 45 % (20-45) Monocytes % (Manual) 3 % (1-10) Eosinophils % (Manual) 11 % (0-3) H Basophils % (Manual) 1 % (0-2) Myelocytes % 1 % (0-0) H Band Neutrophils 0 % (0-8) Nucleated Red Blood Cells 1 /100 WBC Platelet Estimate Decreased L Platelet Morphology Normal Anisocytosis 3+ Macrocytosis 2+ Erythrocyte Sedimentation Rate 80 MM/HR (0-15) H Reticulocyte Count Pending Activated Partial Thromboplast Time 27 SEC (23-33) Sodium Level 140 MMOL/L (136-145) Potassium Level 4.0 MMOL/L (3.5-5.1) Chloride Level 104 MMOL/L (98-107) Carbon Dioxide Level 29 MMOL/L (21-32) Anion Gap 7 mmol/L (5-15) Blood Urea Nitrogen 12 mg/dL (7-18) Creatinine 0.9 MG/DL (0.55-1.30) Estimat Glomerular Filtration Rate > 60 mL/min (>60) Glucose Level 100 MG/DL (74-106) Calcium Level 9.1 MG/DL (8.5-10.1) Iron Level 107 ug/dL (50-175) Total Iron Binding Capacity 295 ug/dL (250-450) Percent Iron Saturation 36 % (15-50) Unsaturated Iron Binding 188 ug/dL (112-346) Ferritin 734 NG/ML (8-388) H Total Bilirubin 2.1 MG/DL (0.2-1.0) H Direct Bilirubin 0.6 MG/DL (0.0-0.3) H Aspartate Amino Transf (AST/SGOT) 75 U/L (15-37) H Alanine Aminotransferase (ALT/SGPT) 68 U/L (12-78) Alkaline Phosphatase 76 U/L (46-116) Lactate Dehydrogenase 1796 U/L (81-234) H Total Protein 7.0 G/DL (6.4-8.2) Albumin 3.8 G/DL (3.4-5.0) Globulin 3.2 g/dL Albumin/Globulin Ratio 1.2 (1.0-2.7) Carcinoembryonic Antigen Pending Vitamin B12 Level < 80 PG/ML (193-986) L Folate 36.6 NG/ML (8.6-58.9) Objective HEAD AND NECK: Shows no JVD. LUNGS: Clear. CARDIOVASCULAR: Shows regular S1 and S2 with no gallop or murmur. ABDOMEN: Soft. EXTREMITIES: No pitting edema. Abiodun Rosas MD Dec 31, 2018 12:33
--- NOTE | 2018-12-31 12:43 | Immediate Post-Op Evaluation ---
Immediate Post-Op Evalulation Immediate Post-Op Evalulation Procedure: egd/colonoscopy/bx Date of Evaluation: Dec 31, 2018 Time of Evaluation: 11:48 IV Fluids: 250ml 0.9ns Blood Products: none Estimated Blood Loss: negligible Blood Pressure Systolic: 90 Blood Pressure Diastolic: 44 Pulse Rate: 63 Respiratory Rate: 18 O2 Sat by Pulse Oximetry: 100 Temperature (Fahrenheit): 97.7 Pain Score (1-10): 0 Nausea: No Vomiting: No Complications none Patient Status: awake, reacts, patent Hydration Status: adequate Drug: Leslye Mccray MD Dec 31, 2018 12:43
--- NOTE | 2018-12-31 12:47 | 48 Hour Post Anesthesia Eval ---
Post Anesthesia Evaluation Procedure: egd/colonoscopy/bx Date of Evaluation: Dec 31, 2018 Time of Evaluation: 11:50 Blood Pressure Systolic: 100 0: 46 Pulse Rate: 63 Respiratory Rate: 18 Temperature (Fahrenheit): 97.7 O2 Sat by Pulse Oximetry: 100 Airway: patent Nausea: No Vomiting: No Pain Intensity: 0 Hydration Status: adequate Cardiopulmonary Status: stable Mental Status/LOC: patient returned to baseline Post-Anesthesia Complications: none Follow-up care needed: N/A Leslye Sheets MD Dec 31, 2018 12:47
--- NOTE | 2018-12-31 15:30 | Cardiology Report ---
APPROVED REPORT EKG Measurement Heart [id number] ND 150P68 [id number] Normal sinus rhythm Left axis deviation Abnormal ECG
--- NOTE | 2018-12-31 15:37 | Hematology/Onc Progress Note ---
Assessment/Plan Assessment/Plan # Pancytopenia -- multiple etiologies could be related to underlying liver disease (hepatosplenomegaly), medication-induced, infection versus viral syndrome --> peripheral smear has been ordered and does not show significant abnormalities --> Medications have been reviewed --> Continue to monitor for improvement, trend cbc --> Hep panel and HIV have been ordered--> neg --> reverse isolation if ANC is <2000 --> Give neupogen if ANC <1000 --> Transfuse if hgb <7, with 1 unit prbc --> consider bone marrow biopsy if no other causes are found --> Blood tx: 12/29, 12/30, # Coagulation defect, multifactorial usually related to poor PO intake versus medication and liver disease --> administer Vitamin K if patient is bleeding or FFP if the INR is >10 --> hold off on ffp unless active procedure/bleeding, first begin with vit K 10 --> mixing study as needed --> per GI eval EGD and COLO (refused) # Chest wall pain. Cardiology is following, appreciate recs --> serial ekg, troponin # History of hypertension # Morbid obesity The time the note is entered does not reflect the time the patient was exmanined. I greatly appreciate the consultation. Subjective Constitutional: Denies: no symptoms, chills, fever, malaise, weakness, other HEENT: Denies: no symptoms, eye pain, blurred vision, tearing, double vision, ear pain, ear discharge, nose pain, nose congestion, throat pain, throat swelling, mouth pain, mouth swelling, other Cardiovascular: Denies: no symptoms, chest pain, edema, irregular heart rate, lightheadedness, palpitations, syncope, other Gastrointestinal/Abdominal: Denies: no symptoms, abdomen distended, abdominal pain, black stools, tarry stools, blood in stool, constipated, diarrhea, difficulty swallowing, nausea, poor appetite, poor fluid intake, rectal bleeding , vomiting, other Genitourinary: Denies: no symptoms, burning, discharge, frequency, flank pain, hematuria, incontinence, pain, urgency, other Neurologic/Psychiatric: Denies: no symptoms, anxiety, depressed, emotional problems, headache, numbness, paresthesia, pre-existing deficit, seizure, tingling, tremors, weakness, other Endocrine: Denies: no symptoms, excessive sweating, flushing, intolerance to cold, intolerance to heat, increased hunger, increased thirst, increased urine, unexplained weight gain, unexplained weight loss, other Allergies: Coded Allergies: No Known Allergies (Unverified , 12/29/18) Subjective 12/31: is s/p egd and colo, results pending Objective Objective Current Medications Medications (Trade) Dose Ordered Sig/Luci Route PRN Reason Start Time Stop Time Status Last Admin Dose Admin Acetaminophen (Tylenol) 650 mg Q4H PRN ORAL FEVER 12/29/18 22:30 01/28/19 22:29 Al Hydroxide/Mg Hydroxide (Mylanta) 15 ml Q1H PRN ORAL gi upset 12/31/18 08:30 12/31/18 16:00 Albuterol/ Ipratropium (Albuterol/ Ipratropium) 3 ml EVERY 4 HOURS PRN HHN Shortness of Breath 12/29/18 22:30 01/03/19 22:29 Atropine Sulfate (Atropine 0.4mg/ ml) 0.5 mg Q5M PRN IVP HR less than 45 BPM 12/31/18 08:30 12/31/18 16:00 Dextrose (Dextrose 50%) 25 ml Q30M PRN IV Hypoglycemia 12/29/18 20:30 01/28/19 20:18 Dextrose (Dextrose 50%) 50 ml Q30M PRN IV hypoglycemia 12/29/18 20:30 01/28/19 20:29 Diltiazem HCl (Cardizem) 10 mg EVERY HOUR PRN IV heart rate more than 120, 12/29/18 22:30 01/28/19 22:29 Diphenhydramine HCl (Benadryl) 25 mg Q15M PRN IVP Itching 12/31/18 08:30 12/31/18 16:00 Enalaprilat (Vasotec) 2.5 mg Q6H PRN IV sbp more than 160 12/30/18 07:30 01/28/19 22:29 Fentanyl Citrate (Sublimaze 100 mcg/2 mL) 25 mcg Q10M PRN IV Moderate Pain (Pain Scale 4-6) 12/31/18 08:30 12/31/18 16:00 Heparin Sodium (Porcine) (Heparin 5000 units/ml) 5,000 units EVERY 12 HOURS SUBQ 12/30/18 21:00 01/29/19 20:59 Hydralazine HCl (Apresoline) 5 mg Q30M PRN IV SBP>160 /DBP>90 12/31/18 08:30 12/31/18 16:00 Lorazepam (Ativan 2mg/ml 1ml) 0.5 mg Q4H PRN IV For Anxiety 12/29/18 20:15 01/05/19 20:14 Morphine Sulfate (Morphine Sulfate) 1 mg Q4H PRN IVP For Pain 12/29/18 20:15 01/05/19 20:14 Morphine Sulfate (Morphine Sulfate) 2 mg EVERY 4 HOURS PRN IVP severe Pain (Pain Scale 7-10) 12/29/18 22:30 01/05/19 22:29 Nitroglycerin (Ntg) 0.4 mg Q5M PRN SL Prn Chest Pain 12/29/18 22:30 01/28/19 22:29 Ondansetron HCl (Zofran) 4 mg Q1H PRN IVP Nausea & Vomiting 12/31/18 08:30 12/31/18 16:00 Ondansetron HCl (Zofran) 4 mg Q6H PRN IVP Nausea & Vomiting 12/29/18 22:30 01/28/19 22:29 Polyethylene Glycol (Miralax) 17 gm DAILYPRN PRN ORAL Constipation 12/29/18 22:30 01/28/19 22:29 Temazepam (Restoril) 15 mg HSPRN PRN ORAL Insomnia 12/29/18 22:30 01/05/19 22:29 Last 24 Hour Vital Signs Date Time Temp Pulse Resp B/P (MAP) Pulse Ox O2 Delivery O2 Flow Rate FiO2 12/31/18 12:47 63 18 100 12/31/18 12:43 63 18 100 12/31/18 12:00 103 12/31/18 11:55 98.0 65 17 98/46 100 Nasal Cannula 3 12/31/18 11:46 65 21 100/46 100 Nasal Cannula 3 12/31/18 11:41 62 18 92/49 100 Nasal Cannula 3 12/31/18 11:36 97.7 63 18 99/44 100 Nasal Cannula 3 12/31/18 09:00 Room Air 12/31/18 08:00 68 12/31/18 08:00 98.3 72 20 120/55 (76) 96 12/31/18 07:27 66 20 95 Room Air 21 12/31/18 04:00 66 12/31/18 04:00 97.6 66 18 123/68 (86) 95 12/31/18 00:00 63 12/31/18 00:00 97.3 63 18 150/71 (97) 100 12/30/18 21:00 Room Air 12/30/18 20:22 65 20 97 Room Air 21 12/30/18 20:00 98.0 62 18 131/56 (81) 98 12/30/18 20:00 62 12/30/18 16:00 59 12/30/18 16:00 98.3 64 20 136/72 (93) 97 12/30/18 12:00 98.3 72 20 126/68 (87) 99 12/30/18 12:00 66 12/30/18 09:56 72 20 96 Room Air 21 12/30/18 09:00 Room Air 12/30/18 08:00 98.4 77 20 125/68 (87) 98 12/30/18 08:00 70 12/30/18 04:00 71 12/30/18 04:00 98.4 70 20 102/42 (62) 98 12/30/18 00:00 68 12/30/18 00:00 98.1 68 18 118/68 (85) 95 12/29/18 22:30 Room Air 12/29/18 22:24 71 12/29/18 22:15 97.8 72 20 111/55 (73) 97 12/29/18 22:05 97.6 71 23 123/45 100 Room Air 21 12/29/18 21:49 97.6 71 23 123/45 100 Room Air 12/29/18 21:34 98.0 69 26 119/47 98 Room Air 12/29/18 18:00 75 18 Room Air 21 12/29/18 18:00 75 18 102/46 98 Room Air 12/29/18 17:59 80 18 99 Room Air 21 12/29/18 17:45 36 12/29/18 17:45 67 16 99 Room Air 21 12/29/18 17:45 67 16 99 Room Air 21 12/29/18 17:09 99.0 86 22 144/86 (105) 98 Room Air Intake and Output 12/30/18 12/31/18 19:00 07:00 Intake Total 1620 ml Balance 1620 ml Intake Oral 1620 ml # Voids 3 4 Labs Test 12/29/18 17:54 12/29/18 19:31 12/30/18 06:10 12/30/18 18:15 White Blood Count 3.6 K/UL (4.8-10.8) 3.7 K/UL (4.8-10.8) 3.9 K/UL (4.8-10.8) Red Blood Count 1.54 M/UL (4.70-6.10) 1.51 M/UL (4.70-6.10) 2.01 M/UL (4.70-6.10) Hemoglobin 6.9 G/DL (14.2-18.0) 6.8 G/DL (14.2-18.0) 8.1 G/DL (14.2-18.0) Hematocrit 18.5 % (42.0-52.0) 18.3 % (42.0-52.0) 22.6 % (42.0-52.0) Mean Corpuscular Volume 120 FL (80-99) 122 FL (80-99) 113 FL (80-99) Mean Corpuscular Hemoglobin 44.9 PG (27.0-31.0) 45.1 PG (27.0-31.0) 40.3 PG (27.0-31.0) Mean Corpuscular Hemoglobin Concent 37.5 G/DL (32.0-36.0) 37.1 G/DL (32.0-36.0) 35.8 G/DL (32.0-36.0) Red Cell Distribution Width 17.1 % (11.6-14.8) 15.9 % (11.6-14.8) 26.4 % (11.6-14.8) Platelet Count 99 K/UL (150-450) 93 K/UL (150-450) 91 K/UL (150-450) Mean Platelet Volume 8.6 FL (6.5-10.1) 7.1 FL (6.5-10.1) 7.5 FL (6.5-10.1) Neutrophils (%) (Auto) % (45.0-75.0) % (45.0-75.0) % (45.0-75.0) Lymphocytes (%) (Auto) % (20.0-45.0) % (20.0-45.0) % (20.0-45.0) Monocytes (%) (Auto) % (1.0-10.0) % (1.0-10.0) % (1.0-10.0) Eosinophils (%) (Auto) % (0.0-3.0) % (0.0-3.0) % (0.0-3.0) Basophils (%) (Auto) % (0.0-2.0) % (0.0-2.0) % (0.0-2.0) Differential Total Cells Counted 100 100 100 Neutrophils % (Manual) 46 % (45-75) 44 % (45-75) 45 % (45-75) Lymphocytes % (Manual) 43 % (20-45) 41 % (20-45) 39 % (20-45) Monocytes % (Manual) 6 % (1-10) 7 % (1-10) 6 % (1-10) Eosinophils % (Manual) 3 % (0-3) 7 % (0-3) 9 % (0-3) Basophils % (Manual) 2 % (0-2) 1 % (0-2) 1 % (0-2) Band Neutrophils 0 % (0-8) 0 % (0-8) 0 % (0-8) Platelet Estimate Decreased Decreased Decreased Platelet Morphology Normal Normal Normal Hypochromasia 2+ 2+ 2+ Anisocytosis 2+ 2+ 4+ Macrocytosis 1+ 2+ 3+ Prothrombin Time 10.7 SEC (9.30-11.50) 10.3 SEC (9.30-11.50) 10.5 SEC (9.30-11.50) Prothromb Time International Ratio 1.0 (0.9-1.1) 1.0 (0.9-1.1) 1.0 (0.9-1.1) Activated Partial Thromboplast Time 25 SEC (23-33) 27 SEC (23-33) Sodium Level 140 MMOL/L (136-145) 141 MMOL/L (136-145) Potassium Level 3.7 MMOL/L (3.5-5.1) 4.1 MMOL/L (3.5-5.1) Chloride Level 105 MMOL/L (98-107) 107 MMOL/L (98-107) Carbon Dioxide Level 25 MMOL/L (21-32) 27 MMOL/L (21-32) Anion Gap 10 mmol/L (5-15) 7 mmol/L (5-15) Blood Urea Nitrogen 13 mg/dL (7-18) 13 mg/dL (7-18) Creatinine 1.0 MG/DL (0.55-1.30) 1.0 MG/DL (0.55-1.30) Estimat Glomerular Filtration Rate > 60 mL/min (>60) > 60 mL/min (>60) Glucose Level 113 MG/DL (74-106) 108 MG/DL (74-106) Calcium Level 8.8 MG/DL (8.5-10.1) 8.8 MG/DL (8.5-10.1) Total Bilirubin 2.0 MG/DL (0.2-1.0) 1.8 MG/DL (0.2-1.0) Direct Bilirubin 0.6 MG/DL (0.0-0.3) 0.6 MG/DL (0.0-0.3) Aspartate Amino Transf (AST/SGOT) 67 U/L (15-37) 64 U/L (15-37) Alanine Aminotransferase (ALT/SGPT) 57 U/L (12-78) 61 U/L (12-78) Alkaline Phosphatase 69 U/L (46-116) 72 U/L (46-116) Total Creatine Kinase 108 U/L (26-308) Creatine Kinase MB 0.7 NG/ML (0.0-3.6) Creatine Kinase MB Relative Index 0.6 Troponin I 0.000 ng/mL (0.000-0.056) 0.001 ng/mL (0.000-0.056) Pro-B-Type Natriuretic Peptide 723 pg/mL (0-125) Total Protein 6.7 G/DL (6.4-8.2) 6.7 G/DL (6.4-8.2) Albumin 3.7 G/DL (3.4-5.0) 3.3 G/DL (3.4-5.0) Globulin 3.0 g/dL 3.4 g/dL Albumin/Globulin Ratio 1.2 (1.0-2.7) 1.0 (1.0-2.7) Lipase 157 U/L (73-393) Urine Opiates Screen Negative (NEGATIVE) Urine Barbiturates Screen Negative (NEGATIVE) Phencyclidine (PCP) Screen Negative (NEGATIVE) Urine Amphetamines Screen Negative (NEGATIVE) Urine Benzodiazepines Screen Negative (NEGATIVE) Urine Cocaine Screen Negative (NEGATIVE) Urine Marijuana (THC) Screen Positive (NEGATIVE) Other Cell Type See comments Nucleated Red Blood Cells 1 /100 WBC Spherocytes 2+ C-Reactive Protein, Quantitative 2.6 mg/dL (0.00-0.90) Triglycerides Level 99 MG/DL (30-150) Cholesterol Level 124 MG/DL (< 200) LDL Cholesterol 87 mg/dL (<100) HDL Cholesterol 22 MG/DL (40-60) Cholesterol/HDL Ratio 5.6 (3.3-4.4) Thyroid Stimulating Hormone (TSH) 3.576 uiU/mL (0.358-3.740) Fibrinogen 429 mg/dL (200-400) Hepatitis A IgM Antibody Negative (Negative) Hepatitis B Surface Antigen Negative (Negative) Hepatitis B Core IgM Antibody Negative (Negative) Hepatitis C Antibody <0.1 s/co ratio HIV (1&2) Antibody Rapid Negative (NEGATIVE) Test 12/30/18 20:00 12/31/18 00:55 12/31/18 06:58 Troponin I 0.000 ng/mL (0.000-0.056) 0.003 ng/mL (0.000-0.056) Stool Occult Blood Negative (NEGATIVE) White Blood Count 3.8 K/UL (4.8-10.8) Red Blood Count 2.19 M/UL (4.70-6.10) Hemoglobin 8.7 G/DL (14.2-18.0) Hematocrit 24.0 % (42.0-52.0) Mean Corpuscular Volume 110 FL (80-99) Mean Corpuscular Hemoglobin 39.6 PG (27.0-31.0) Mean Corpuscular Hemoglobin Concent 36.1 G/DL (32.0-36.0) Red Cell Distribution Width 25.7 % (11.6-14.8) Platelet Count 91 K/UL (150-450) Mean Platelet Volume 8.9 FL (6.5-10.1) Neutrophils (%) (Auto) % (45.0-75.0) Lymphocytes (%) (Auto) % (20.0-45.0) Monocytes (%) (Auto) % (1.0-10.0) Eosinophils (%) (Auto) % (0.0-3.0) Basophils (%) (Auto) % (0.0-2.0) Differential Total Cells Counted 100 Neutrophils % (Manual) 39 % (45-75) Lymphocytes % (Manual) 45 % (20-45) Monocytes % (Manual) 3 % (1-10) Eosinophils % (Manual) 11 % (0-3) Basophils % (Manual) 1 % (0-2) Myelocytes % 1 % (0-0) Band Neutrophils 0 % (0-8) Nucleated Red Blood Cells 1 /100 WBC Platelet Estimate Decreased Platelet Morphology Normal Anisocytosis 3+ Macrocytosis 2+ Erythrocyte Sedimentation Rate 80 MM/HR (0-15) Reticulocyte Count 2.7 % (0.5-2.0) Prothrombin Time 10.5 SEC (9.30-11.50) Prothromb Time International Ratio 1.0 (0.9-1.1) Activated Partial Thromboplast Time 27 SEC (23-33) Sodium Level 140 MMOL/L (136-145) Potassium Level 4.0 MMOL/L (3.5-5.1) Chloride Level 104 MMOL/L (98-107) Carbon Dioxide Level 29 MMOL/L (21-32) Anion Gap 7 mmol/L (5-15) Blood Urea Nitrogen 12 mg/dL (7-18) Creatinine 0.9 MG/DL (0.55-1.30) Estimat Glomerular Filtration Rate > 60 mL/min (>60) Glucose Level 100 MG/DL (74-106) Calcium Level 9.1 MG/DL (8.5-10.1) Iron Level 107 ug/dL (50-175) Total Iron Binding Capacity 295 ug/dL (250-450) Percent Iron Saturation 36 % (15-50) Unsaturated Iron Binding 188 ug/dL (112-346) Ferritin 734 NG/ML (8-388) Total Bilirubin 2.1 MG/DL (0.2-1.0) Direct Bilirubin 0.6 MG/DL (0.0-0.3) Aspartate Amino Transf (AST/SGOT) 75 U/L (15-37) Alanine Aminotransferase (ALT/SGPT) 68 U/L (12-78) Alkaline Phosphatase 76 U/L (46-116) Lactate Dehydrogenase 1796 U/L (81-234) Total Protein 7.0 G/DL (6.4-8.2) Albumin 3.8 G/DL (3.4-5.0) Globulin 3.2 g/dL Albumin/Globulin Ratio 1.2 (1.0-2.7) Vitamin B12 Level < 80 PG/ML (193-986) Folate 36.6 NG/ML (8.6-58.9) Height (Feet): 5 Height (Inches): 5.00 Weight (Pounds): 380 Objective Physical Exam General Appearance: WD/WN Lines, tubes and drains: peripheral HEENT: normocephalic, atraumatic Neck: non-tender, normal alignment, supple Respiratory/Chest: chest wall non-tender, lungs clear Breasts: no masses Cardiovascular/Chest: normal peripheral pulses, regular rhythm Abdomen: normal bowel sounds Genitourinary/Rectal: normal genital exam Extremities: normal range of motion Eduardo Wheeler MD Dec 31, 2018 15:37
[2018-12-31] MEDS ORDERED: Tubing Blood Filter IV ONE (15:45)
--- NOTE | 2018-12-31 16:10 | Cardiology Report ---
APPROVED REPORT EKG Measurement Heart [id number] VT 160P17 [id number] Normal sinus rhythm Left axis deviation Abnormal ECG
--- NOTE | 2018-12-31 16:45 | Procedure Note ---
DATE OF PROCEDURE: 12/31/2018 SURGEON: Devon Harper M.D. PROCEDURE: Upper endoscopy with biopsy and colonoscopy. ANESTHESIA: Per Dr. Gray. INSTRUMENT: Olympus adult flexible upper endoscope and colonoscope. INDICATIONS: Anemia. REASON FOR PROCEDURE: The procedure, risks, benefits, and possible consequences, including hemorrhage, aspiration, perforation and infection, and alternative treatments, were explained to the patient/legal guardian by Dr. Devon Harper and the patient/legal guardian understood and accepted these risks. PROCEDURE IN DETAIL: After informed consent was obtained and the patient was adequately sedated, Olympus upper endoscope was advanced from mouth into the second portion of the duodenum and retroflexion was performed in the stomach. The patient had evidence of diffuse gastritis. Random biopsy from antrum was obtained to rule out H. pylori infection. At this time, the upper endoscope was retrieved and the patient was turned over for colonoscopy. First, rectal exam was performed, which was normal. Then, the scope was advanced from the rectum into the cecum documented by appendiceal orifice, ileocecal valve, and right upper quadrant palpation. Quality of prep was overall very good. The patient had normal colonoscopy examination without any obvious source of bleeding. No diverticulosis. No polyps. Retroflexion of rectum showed evidence of internal hemorrhoids. SUMMARY OF FINDINGS: 1. Gastritis. 2. Internal hemorrhoids. RECOMMENDATIONS: Follow up pathology and treat accordingly. Devon Harper M.D. DR: Mateo JOB#: [id number] CC:
--- NOTE | 2018-12-31 19:06 | NUR ---
HAND-OFF: Report given to BAMBI Fernandez. Pt is in stable condition; plan of care endorsed.
--- NOTE | 2018-12-31 19:07 | NUR ---
NURSE NOTES: Received report from BAMBI Wahl. Patient is sitting on edge of bed watching TV. No signs or symptoms of distress or SOB noted at this time. Bed is in lowest position, break engaged and call light is within reach. Will continue to monitor and follow plan of care.
[2019-01-01] VITALS: BP 102/47
[2019-01-01 04:00] VITALS: BP 120/60
[2019-01-01 06:26] LABS: HEMATOCRIT 23.6 % (42.0-52.0); HEMOGLOBIN 8.7 G/DL (14.2-18.0); MEAN CORPUSCULAR VOLUME 109 FL (80-99); PLATELET COUNT 81 K/UL (150-450); RED BLOOD COUNT 2.16 M/UL (4.70-6.10); RED CELL DISTRIBUTION WIDTH 26.1 % (11.6-14.8); WHITE BLOOD COUNT 3.4 K/UL (4.8-10.8)
[2019-01-01 07:01] LABS: ANION GAP 11 mmol/L (5-15); BLOOD UREA NITROGEN 13 mg/dL (7-18); CALCIUM 9.1 MG/DL (8.5-10.1); CARBON DIOXIDE 26 MMOL/L (21-32); CHLORIDE 106 MMOL/L (98-107); SODIUM 143 MMOL/L (136-145)
--- NOTE | 2019-01-01 07:04 | General Progress Note ---
Assessment/Plan Problem List: (1) Chest wall pain ICD Codes: R07.89 - Other chest pain SNOMED: 055493957 (2) Thrombocytopenia ICD Codes: D69.6 - Thrombocytopenia, unspecified SNOMED: 340533767 (3) Marijuana user ICD Codes: F12.90 - Cannabis use, unspecified, uncomplicated SNOMED: 101900322 (4) Anemia ICD Codes: D64.9 - Anemia, unspecified SNOMED: 998437526 (5) Morbid obesity ICD Codes: E66.01 - Morbid (severe) obesity due to excess calories SNOMED: 842861831 Status: stable, progressing Assessment/Plan: s/p EGD and colonoscopy neg stool ob pancytopenia no active GIB fu labs Subjective ROS Limited/Unobtainable: Yes Allergies: Coded Allergies: No Known Allergies (Unverified , 12/29/18) Objective Last 24 Hour Vital Signs Date Time Temp Pulse Resp B/P (MAP) Pulse Ox O2 Delivery O2 Flow Rate FiO2 01/01/19 04:00 64 01/01/19 04:00 98.0 69 20 120/60 (80) 98 01/01/19 00:00 97.5 70 20 102/47 (65) 98 01/01/19 00:00 66 12/31/18 21:00 Room Air 12/31/18 20:00 98.2 71 20 136/54 (81) 95 12/31/18 20:00 71 12/31/18 20:00 72 20 94 Room Air 21 12/31/18 16:00 71 12/31/18 16:00 98.7 71 20 117/54 (75) 100 12/31/18 12:47 63 18 100 12/31/18 12:43 63 18 100 12/31/18 12:00 103 12/31/18 11:55 98.0 65 17 98/46 100 Nasal Cannula 3 12/31/18 11:46 65 21 100/46 100 Nasal Cannula 3 12/31/18 11:41 62 18 92/49 100 Nasal Cannula 3 12/31/18 11:36 97.7 63 18 99/44 100 Nasal Cannula 3 12/31/18 09:00 Room Air 12/31/18 08:00 68 12/31/18 08:00 98.3 72 20 120/55 (76) 96 12/31/18 07:27 66 20 95 Room Air 21 Intake and Output 12/31/18 01/01/19 18:59 06:59 Intake Total 610 ml 500 ml Output Total 300 ml Balance 310 ml 500 ml Intake Oral 360 ml 500 ml IV Total 250 ml Output Urine Total 300 ml # Voids 3 4 # Bowel Movements 1 Laboratory Tests 12/31/18 19:45: Troponin I 0.003 01/01/19 06:07: White Blood Count 3.4L, Red Blood Count 2.16L, Hemoglobin 8.7L, Hematocrit 23.6L , Mean Corpuscular Volume 109H, Mean Corpuscular Hemoglobin 40.1H, Mean Corpuscular Hemoglobin Concent 36.7H, Red Cell Distribution Width 26.1H, Platelet Count 81L, Mean Platelet Volume 7.7, Neutrophils (%) (Auto) , Lymphocytes (%) (Auto) , Monocytes (%) (Auto) , Eosinophils (%) (Auto) , Basophils (%) (Auto) , Neutrophils % (Manual) [Pending], Lymphocytes % (Manual) [Pending], Platelet Estimate [Pending], Platelet Morphology [Pending], Sodium Level 143, Potassium Level 4.0, Chloride Level 106, Carbon Dioxide Level 26, Anion Gap 11, Blood Urea Nitrogen 13, Creatinine 1.0, Estimat Glomerular Filtration Rate > 60, Glucose Level 100, Calcium Level 9.1 Height (Feet): 5 Height (Inches): 5.00 Weight (Pounds): 380 General Appearance: alert EENT: normal ENT inspection Neck: supple Cardiovascular: normal rate Respiratory/Chest: decreased breath sounds Abdomen: normal bowel sounds, non tender, soft Extremities: non-tender Devon Harper MD Jan 01, 2019 07:04
[2019-01-01 08:00] VITALS: BP 110/61
--- NOTE | 2019-01-01 08:19 | NUR ---
NURSE NOTES: pt watching TV, just finished breakfast AOx4. Pt on immigration consultant, no signs of cardiac or respiratory distress at this time. Bed in lowest position and locked. Call light within reach. Will continuer to follow plan of care.
--- NOTE | 2019-01-01 08:32 | General Progress Note ---
Assessment/Plan Problem List: (1) ACS (acute coronary syndrome) ICD Codes: I24.9 - Acute ischemic heart disease, unspecified SNOMED: 418456864 (2) Morbid obesity ICD Codes: E66.01 - Morbid (severe) obesity due to excess calories SNOMED: 075721335 (3) Anemia ICD Codes: D64.9 - Anemia, unspecified SNOMED: 989099496 (4) Chest pain ICD Codes: R07.9 - Chest pain, unspecified SNOMED: 83683204 (5) History of hypertension ICD Codes: Z86.79 - Personal history of other diseases of the circulatory system SNOMED: 428081302 (6) Thrombocytopenia ICD Codes: D69.6 - Thrombocytopenia, unspecified SNOMED: 702525243 Status: stable, progressing Assessment/Plan: bp pain control cardio heme f/u cbc bmp am dc plan w hh Subjective Constitutional: Reports: weakness Allergies: Coded Allergies: No Known Allergies (Unverified , 12/29/18) All Systems: reviewed and negative except above Subjective sitting calm Objective Last 24 Hour Vital Signs Date Time Temp Pulse Resp B/P (MAP) Pulse Ox O2 Delivery O2 Flow Rate FiO2 01/01/19 07:51 77 18 95 Room Air 21 01/01/19 04:00 64 01/01/19 04:00 98.0 69 20 120/60 (80) 98 01/01/19 00:00 97.5 70 20 102/47 (65) 98 01/01/19 00:00 66 12/31/18 21:00 Room Air 12/31/18 20:00 98.2 71 20 136/54 (81) 95 12/31/18 20:00 71 12/31/18 20:00 72 20 94 Room Air 21 12/31/18 16:00 71 12/31/18 16:00 98.7 71 20 117/54 (75) 100 12/31/18 12:47 63 18 100 12/31/18 12:43 63 18 100 12/31/18 12:00 103 12/31/18 11:55 98.0 65 17 98/46 100 Nasal Cannula 3 12/31/18 11:46 65 21 100/46 100 Nasal Cannula 3 12/31/18 11:41 62 18 92/49 100 Nasal Cannula 3 12/31/18 11:36 97.7 63 18 99/44 100 Nasal Cannula 3 12/31/18 09:00 Room Air Intake and Output 12/31/18 01/01/19 18:59 06:59 Intake Total 610 ml 500 ml Output Total 300 ml Balance 310 ml 500 ml Intake Oral 360 ml 500 ml IV Total 250 ml Output Urine Total 300 ml # Voids 3 4 # Bowel Movements 1 Laboratory Tests 12/31/18 19:45: Troponin I 0.003 01/01/19 06:07: White Blood Count 3.4L, Red Blood Count 2.16L, Hemoglobin 8.7L, Hematocrit 23.6L , Mean Corpuscular Volume 109H, Mean Corpuscular Hemoglobin 40.1H, Mean Corpuscular Hemoglobin Concent 36.7H, Red Cell Distribution Width 26.1H, Platelet Count 81L, Mean Platelet Volume 7.7, Neutrophils (%) (Auto) , Lymphocytes (%) (Auto) , Monocytes (%) (Auto) , Eosinophils (%) (Auto) , Basophils (%) (Auto) , Neutrophils % (Manual) [Pending], Lymphocytes % (Manual) [Pending], Platelet Estimate [Pending], Platelet Morphology [Pending], Sodium Level 143, Potassium Level 4.0, Chloride Level 106, Carbon Dioxide Level 26, Anion Gap 11, Blood Urea Nitrogen 13, Creatinine 1.0, Estimat Glomerular Filtration Rate > 60, Glucose Level 100, Calcium Level 9.1 Height (Feet): 5 Height (Inches): 5.00 Weight (Pounds): 380 General Appearance: lethargic EENT: normal ENT inspection Neck: normal alignment Cardiovascular: normal peripheral pulses, normal rate, regular rhythm Respiratory/Chest: chest wall non-tender, lungs clear, normal breath sounds Abdomen: normal bowel sounds, non tender, soft Extremities: normal inspection Edema: no edema noted Arm (L), no edema noted Arm (R), no edema noted Leg (L), no edema noted Leg (R), no edema noted Pedal (L), no edema noted Pedal (R), no edema noted Generalized Neurologic: responsive, motor weakness Skin: normal pigmentation, warm/dry Jerod Zuluaga DO Jan 01, 2019 08:32
[2019-01-01] MEDS: Heparin 5000 units/ml inj SUBQ SCH ×2 (09:00→20:15)
[2019-01-01 12:00] VITALS: BP 125/72
--- NOTE | 2019-01-01 12:38 | NUR ---
CASE MANAGEMENT: REVIEW 01/01/2019 SI:CP. ACS. T 98.7 HR 75 RR 20 B/P 110/61 SATS 97% ON RA WBC 3.4 IS: HEPARIN SUBQ Q12H TELE STATUS DCP: PATIENT TO BE DISCHARGED TO HOME ONCE MEDICALLY CLEARED.
--- NOTE | 2019-01-01 12:40 | NUR ---
INSURANCE REVIEWS FAXED TO NO BLEND TECHNICIAN ASSIGNED AT THIS TIME PLEASE FAX THE REVIEW/CLINICAL P- [phone] F- [phone]...REVIEW/CLINICAL
--- NOTE | 2019-01-01 12:42 | NUR ---
DISCHARGE PLANNING: NOTE CLINICALS FAXED TO TESSIE LEWIS FOR REVIEW
--- NOTE | 2019-01-01 13:47 | Cardiac Electrophysiology PN ---
Assessment/Plan Assessment/Plan 1. Chest pain. This is due to trauma to his chest. His troponins are negative. EKG does not show any acute ischemic changes. Echocardiogram does not show any pericardial effusion. 2. History of hypertension. The patient is on p.r.n. enalapril 3. Severe anemia. Hemoglobin in 6 range. The patient was evaluated by Dr. Harper. S/P EGD and colonoscopy today by Dr Harper. S/P 2 liters of PRBC 4. Morbid obesity. 5. Low platelet. Heparin held DW RN Subjective Subjective EGD and colonoscopy that showed Hemorrhoid and Gastritis. No CP or SOB Objective Last 24 Hour Vital Signs Date Time Temp Pulse Resp B/P (MAP) Pulse Ox O2 Delivery O2 Flow Rate FiO2 01/01/19 08:00 98.7 75 20 110/61 (77) 97 01/01/19 07:51 77 18 95 Room Air 21 01/01/19 04:00 64 01/01/19 04:00 98.0 69 20 120/60 (80) 98 01/01/19 00:00 97.5 70 20 102/47 (65) 98 01/01/19 00:00 66 12/31/18 21:00 Room Air 12/31/18 20:00 98.2 71 20 136/54 (81) 95 12/31/18 20:00 71 12/31/18 20:00 72 20 94 Room Air 21 12/31/18 16:00 71 12/31/18 16:00 98.7 71 20 117/54 (75) 100 Intake and Output 12/31/18 01/01/19 19:00 07:00 Intake Total 610 ml 500 ml Output Total 300 ml Balance 310 ml 500 ml Intake Oral 360 ml 500 ml IV Total 250 ml Output Urine Total 300 ml # Voids 3 4 # Bowel Movements 1 Laboratory Tests Test 12/31/18 19:45 01/01/19 06:07 Troponin I 0.003 ng/mL (0.000-0.056) White Blood Count 3.4 K/UL (4.8-10.8) L Red Blood Count 2.16 M/UL (4.70-6.10) L Hemoglobin 8.7 G/DL (14.2-18.0) L Hematocrit 23.6 % (42.0-52.0) L Mean Corpuscular Volume 109 FL (80-99) H Mean Corpuscular Hemoglobin 40.1 PG (27.0-31.0) H Mean Corpuscular Hemoglobin Concent 36.7 G/DL (32.0-36.0) H Red Cell Distribution Width 26.1 % (11.6-14.8) H Platelet Count 81 K/UL (150-450) L Mean Platelet Volume 7.7 FL (6.5-10.1) Neutrophils (%) (Auto) % (45.0-75.0) Lymphocytes (%) (Auto) % (20.0-45.0) Monocytes (%) (Auto) % (1.0-10.0) Eosinophils (%) (Auto) % (0.0-3.0) Basophils (%) (Auto) % (0.0-2.0) Differential Total Cells Counted 100 Neutrophils % (Manual) 37 % (45-75) L Lymphocytes % (Manual) 48 % (20-45) H Monocytes % (Manual) 6 % (1-10) Eosinophils % (Manual) 8 % (0-3) H Basophils % (Manual) 1 % (0-2) Band Neutrophils 0 % (0-8) Platelet Estimate Decreased L Platelet Morphology Normal Hypochromasia 2+ Anisocytosis 4+ Macrocytosis 1+ Spherocytes 2+ Sodium Level 143 MMOL/L (136-145) Potassium Level 4.0 MMOL/L (3.5-5.1) Chloride Level 106 MMOL/L (98-107) Carbon Dioxide Level 26 MMOL/L (21-32) Anion Gap 11 mmol/L (5-15) Blood Urea Nitrogen 13 mg/dL (7-18) Creatinine 1.0 MG/DL (0.55-1.30) Estimat Glomerular Filtration Rate > 60 mL/min (>60) Glucose Level 100 MG/DL (74-106) Calcium Level 9.1 MG/DL (8.5-10.1) Objective HEAD AND NECK: No JVD. LUNGS: Clear. CARDIOVASCULAR: Regular S1 and S2 with no gallop or murmur. ABDOMEN: Soft. EXTREMITIES: No pitting edema. Abiodun Rosas MD Jan 01, 2019 13:47
[2019-01-01 16:00] VITALS: BP 141/58
--- NOTE | 2019-01-01 19:48 | NUR ---
HAND-OFF: Report given to Lindy LACY pt in stable condition.
[2019-01-01 20:00] VITALS: BP 138/79
--- NOTE | 2019-01-01 20:00 | NUR ---
NURSE NOTES: received pt from BAMBI Nguyen. pt in bed, no acute distress noted, bed locked and lowest position, side rail up x2, call light and personal belonging within reach. will continue to monitor for any change in condition.
[2019-01-02] VITALS: BP 126/52
--- NOTE | 2019-01-02 | NUR ---
NURSE NOTES: pt in bed sleeping. no change in condition. no s/s of pain. will continue to monitor.
[2019-01-02 04:00] VITALS: BP 119/57
--- NOTE | 2019-01-02 04:00 | NUR ---
NURSE NOTES: pt sleeping, no change in condition. will continue to monitor for change in condition.
[2019-01-02 06:28] LABS: HEMATOCRIT 25.6 % (42.0-52.0); HEMOGLOBIN 9.2 G/DL (14.2-18.0); MEAN CORPUSCULAR VOLUME 112 FL (80-99); PLATELET COUNT 76 K/UL (150-450); RED BLOOD COUNT 2.28 M/UL (4.70-6.10); WHITE BLOOD COUNT 3.4 K/UL (4.8-10.8)
--- NOTE | 2019-01-02 06:30 | NUR ---
NURSE NOTES: pt remains stable, no change in condition. all needs met during my shift. bed locked and lowest position, bedside rail up x2, belonging and call light within reach. will endorse pt to incoming nurse.
[2019-01-02 06:59] LABS: ANION GAP 5 mmol/L (5-15); BLOOD UREA NITROGEN 15 mg/dL (7-18); CALCIUM 9.1 MG/DL (8.5-10.1); CARBON DIOXIDE 31 MMOL/L (21-32); CHLORIDE 103 MMOL/L (98-107); POTASSIUM 3.8 MMOL/L (3.5-5.1); SODIUM 139 MMOL/L (136-145)
--- NOTE | 2019-01-02 07:10 | NUR ---
NURSE NOTES: Received pt from BAMBI Sparks. Patient is AAO x 4. Pt is sitting in bed eating breakfast. No acute distress noted and patient denies pain at this time. Patient is breathing even and unlabored. Bed is locked and lowest position, side rail up x2, call light and personal belonging within reach. Will follow up with plan of care.
--- NOTE | 2019-01-02 07:25 | NUR ---
HAND-OFF: Report given to BAMBI Jean Baptiste.
[2019-01-02 08:00] VITALS: BP 137/59
--- NOTE | 2019-01-02 08:27 | General Progress Note ---
Assessment/Plan Problem List: (1) ACS (acute coronary syndrome) ICD Codes: I24.9 - Acute ischemic heart disease, unspecified SNOMED: 673121592 (2) Morbid obesity ICD Codes: E66.01 - Morbid (severe) obesity due to excess calories SNOMED: 466917321 (3) Anemia ICD Codes: D64.9 - Anemia, unspecified SNOMED: 703184027 (4) Chest pain ICD Codes: R07.9 - Chest pain, unspecified SNOMED: 50943770 (5) History of hypertension ICD Codes: Z86.79 - Personal history of other diseases of the circulatory system SNOMED: 306409725 (6) Thrombocytopenia ICD Codes: D69.6 - Thrombocytopenia, unspecified SNOMED: 548396086 Status: stable, progressing Assessment/Plan: bp pain control cardio heme f/u cbc bmp am dc plan w hh Subjective Constitutional: Reports: weakness Allergies: Coded Allergies: No Known Allergies (Unverified , 12/29/18) All Systems: reviewed and negative except above Subjective sitting calm Objective Last 24 Hour Vital Signs Date Time Temp Pulse Resp B/P (MAP) Pulse Ox O2 Delivery O2 Flow Rate FiO2 01/02/19 04:00 68 01/02/19 04:00 98.4 64 18 119/57 (77) 98 01/02/19 00:00 71 01/02/19 00:00 98.1 74 18 126/52 (76) 97 01/01/19 21:00 Room Air 01/01/19 20:00 89 01/01/19 20:00 98.7 86 18 138/79 (98) 99 01/01/19 19:23 74 18 96 Room Air 21 01/01/19 16:00 98.1 64 22 141/58 (85) 97 01/01/19 16:00 65 01/01/19 12:00 69 01/01/19 12:00 97.9 70 18 125/72 (89) 98 01/01/19 09:00 Room Air Intake and Output 01/01/19 01/02/19 18:59 06:59 Intake Total 480 ml Balance 480 ml Intake Oral 480 ml # Voids 2 3 Laboratory Tests 01/02/19 06:00: White Blood Count 3.4L, Red Blood Count 2.28L, Hemoglobin 9.2L, Hematocrit 25.6L , Mean Corpuscular Volume 112H, Mean Corpuscular Hemoglobin 40.4H, Mean Corpuscular Hemoglobin Concent 36.0, Red Cell Distribution Width 26.0H, Platelet Count 76L, Mean Platelet Volume 7.1, Neutrophils (%) (Auto) , Lymphocytes (%) (Auto) , Monocytes (%) (Auto) , Eosinophils (%) (Auto) , Basophils (%) (Auto) , Neutrophils % (Manual) [Pending], Lymphocytes % (Manual) [Pending], Platelet Estimate [Pending], Platelet Morphology [Pending], Sodium Level 139, Potassium Level 3.8, Chloride Level 103, Carbon Dioxide Level 31, Anion Gap 5, Blood Urea Nitrogen 15, Creatinine 1.0, Estimat Glomerular Filtration Rate > 60, Glucose Level 99, Calcium Level 9.1 Height (Feet): 5 Height (Inches): 5.00 Weight (Pounds): 380 General Appearance: lethargic EENT: normal ENT inspection Neck: normal alignment Cardiovascular: normal peripheral pulses, normal rate, regular rhythm Respiratory/Chest: chest wall non-tender, lungs clear, normal breath sounds Abdomen: normal bowel sounds, non tender, soft Extremities: normal inspection Edema: no edema noted Arm (L), no edema noted Arm (R), no edema noted Leg (L), no edema noted Leg (R), no edema noted Pedal (L), no edema noted Pedal (R), no edema noted Generalized Neurologic: responsive, motor weakness Skin: normal pigmentation, warm/dry Jerod Zuluaga DO Jan 02, 2019 08:27
[2019-01-02] MEDS: Heparin 5000 units/ml inj SUBQ SCH (09:00)
--- NOTE | 2019-01-02 09:09 | NUR ---
DISCHARGE PLANNING: NOTE CLINICALS RECEIVED BY TESSIE AND IS BEING REVIEWED Addendum: 01/02/19 at 0911 by Lu Talbot CM [facility] IS ACCEPTING THIS PATIENT TO SERVICES
--- NOTE | 2019-01-02 09:12 | NUR ---
CASE MANAGEMENT: REVIEW 01/02/2019 SI:CP. ACS. T 98.4 HR 72 RR 20 B/P 137/59 SATS 97% ON RA WBC 3.4 IS: HEPARIN SUBQ Q12H TELE STATUS DCP: PATIENT TO BE DISCHARGED TO HOME ONCE MEDICALLY CLEARED.
--- NOTE | 2019-01-02 09:18 | NUR ---
INSURANCE REVIEWS FAXED TO NO CAR DUMPER ASSIGNED AT THIS TIME PLEASE FAX THE REVIEW/CLINICAL P- [phone] F- [phone]...REVIEW/CLINICAL
--- NOTE | 2019-01-02 10:10 | NUR ---
NURSE NOTES: Spoke to Clarke Ramos NP for GI. Cleared by GI for discharge.
--- NOTE | 2019-01-02 10:30 | NUR ---
NURSE NOTES: Spoke to Dr. Wheeler. States 7/ morning labs. State by hematology standpoint cleared for discharge.
--- NOTE | 2019-01-02 10:52 | GI Progress Note ---
Assessment/Plan Problems: (1) Thrombocytopenia ICD Codes: D69.6 - Thrombocytopenia, unspecified SNOMED: 949681500 (2) Anemia ICD Codes: D64.9 - Anemia, unspecified SNOMED: 114353826 (3) Morbid obesity ICD Codes: E66.01 - Morbid (severe) obesity due to excess calories SNOMED: 315598802 (4) Marijuana user ICD Codes: F12.90 - Cannabis use, unspecified, uncomplicated SNOMED: 928323670 Status: stable Status Narrative Discussed with Dr. Harper. Assessment/Plan s/p EGD and colonoscopy neg stool ob pancytopenia no active GIB fu labs okay for DC per GI standpoint The patient was seen and examined at bedside and all new and available data was reviewed in the patients chart. I agree with the above findings, impression and plan. (Patient seen earlier today. Signature stamp does not reflect patient encounter time.). - Devon Harper MD Subjective Gastrointestinal/Abdominal: Reports: no symptoms Objective Last 24 Hour Vital Signs Date Time Temp Pulse Resp B/P (MAP) Pulse Ox O2 Delivery O2 Flow Rate FiO2 01/02/19 09:00 Room Air 01/02/19 08:00 98.4 72 20 137/59 (85) 97 01/02/19 07:32 74 01/02/19 04:00 68 01/02/19 04:00 98.4 64 18 119/57 (77) 98 01/02/19 00:00 71 01/02/19 00:00 98.1 74 18 126/52 (76) 97 01/01/19 21:00 Room Air 01/01/19 20:00 89 01/01/19 20:00 98.7 86 18 138/79 (98) 99 01/01/19 19:23 74 18 96 Room Air 21 01/01/19 16:00 98.1 64 22 141/58 (85) 97 01/01/19 16:00 65 01/01/19 12:00 69 01/01/19 12:00 97.9 70 18 125/72 (89) 98 Intake and Output 01/01/19 01/02/19 18:59 06:59 Intake Total 480 ml Balance 480 ml Intake Oral 480 ml # Voids 2 3 Laboratory Tests Test 01/02/19 06:00 White Blood Count 3.4 K/UL (4.8-10.8) L Red Blood Count 2.28 M/UL (4.70-6.10) L Hemoglobin 9.2 G/DL (14.2-18.0) L Hematocrit 25.6 % (42.0-52.0) L Mean Corpuscular Volume 112 FL (80-99) H Mean Corpuscular Hemoglobin 40.4 PG (27.0-31.0) H Mean Corpuscular Hemoglobin Concent 36.0 G/DL (32.0-36.0) Red Cell Distribution Width 26.0 % (11.6-14.8) H Platelet Count 76 K/UL (150-450) L Mean Platelet Volume 7.1 FL (6.5-10.1) Neutrophils (%) (Auto) % (45.0-75.0) Lymphocytes (%) (Auto) % (20.0-45.0) Monocytes (%) (Auto) % (1.0-10.0) Eosinophils (%) (Auto) % (0.0-3.0) Basophils (%) (Auto) % (0.0-2.0) Differential Total Cells Counted 100 Neutrophils % (Manual) 31 % (45-75) L Lymphocytes % (Manual) 51 % (20-45) H Monocytes % (Manual) 5 % (1-10) Eosinophils % (Manual) 12 % (0-3) H Basophils % (Manual) 1 % (0-2) Band Neutrophils 0 % (0-8) Platelet Estimate Decreased L Platelet Morphology Normal Polychromasia 1+ Hypochromasia 2+ Anisocytosis 4+ Macrocytosis 2+ Spherocytes 3+ Sodium Level 139 MMOL/L (136-145) Potassium Level 3.8 MMOL/L (3.5-5.1) Chloride Level 103 MMOL/L (98-107) Carbon Dioxide Level 31 MMOL/L (21-32) Anion Gap 5 mmol/L (5-15) Blood Urea Nitrogen 15 mg/dL (7-18) Creatinine 1.0 MG/DL (0.55-1.30) Estimat Glomerular Filtration Rate > 60 mL/min (>60) Glucose Level 99 MG/DL (74-106) Calcium Level 9.1 MG/DL (8.5-10.1) Height (Feet): 5 Height (Inches): 5.00 Weight (Pounds): 380 General Appearance: WD/WN, no apparent distress, alert, obese Cardiovascular: normal rate Respiratory/Chest: normal breath sounds, no respiratory distress Abdominal Exam: normal bowel sounds, non tender, soft Extremities: normal range of motion, non-tender Reynold Fuentes NP Jan 02, 2019 10:52
--- NOTE | 2019-01-02 10:56 | Pulmonology Progress Note ---
Assessment/Plan Problems: (1) ACS (acute coronary syndrome) (2) Thrombocytopenia (3) Anemia (4) Chest wall pain (5) History of hypertension (6) Morbid obesity (7) Marijuana user Assessment/Plan s/p prbc doing better symptomatic treatment weight loss dc home Subjective ROS Limited/Unobtainable: No Constitutional: Reports: no symptoms HEENT: Repors: no symptoms Allergies: Coded Allergies: No Known Allergies (Unverified , 12/29/18) Objective Last 24 Hour Vital Signs Date Time Temp Pulse Resp B/P (MAP) Pulse Ox O2 Delivery O2 Flow Rate FiO2 01/02/19 09:00 Room Air 01/02/19 08:00 98.4 72 20 137/59 (85) 97 01/02/19 07:32 74 01/02/19 04:00 68 01/02/19 04:00 98.4 64 18 119/57 (77) 98 01/02/19 00:00 71 01/02/19 00:00 98.1 74 18 126/52 (76) 97 01/01/19 21:00 Room Air 01/01/19 20:00 89 01/01/19 20:00 98.7 86 18 138/79 (98) 99 01/01/19 19:23 74 18 96 Room Air 21 01/01/19 16:00 98.1 64 22 141/58 (85) 97 01/01/19 16:00 65 01/01/19 12:00 69 01/01/19 12:00 97.9 70 18 125/72 (89) 98 Intake and Output 01/01/19 01/02/19 18:59 06:59 Intake Total 480 ml Balance 480 ml Intake Oral 480 ml # Voids 2 3 General Appearance: WD/WN HEENT: normocephalic Respiratory/Chest: chest wall non-tender, lungs clear Cardiovascular: normal peripheral pulses, normal rate Abdomen: normal bowel sounds, soft, non tender Laboratory Tests 01/02/19 06:00: White Blood Count 3.4L, Red Blood Count 2.28L, Hemoglobin 9.2L, Hematocrit 25.6L , Mean Corpuscular Volume 112H, Mean Corpuscular Hemoglobin 40.4H, Mean Corpuscular Hemoglobin Concent 36.0, Red Cell Distribution Width 26.0H, Platelet Count 76L, Mean Platelet Volume 7.1, Neutrophils (%) (Auto) , Lymphocytes (%) (Auto) , Monocytes (%) (Auto) , Eosinophils (%) (Auto) , Basophils (%) (Auto) , Differential Total Cells Counted 100, Neutrophils % ( Manual) 31L, Lymphocytes % (Manual) 51H, Monocytes % (Manual) 5, Eosinophils % ( Manual) 12H, Basophils % (Manual) 1, Band Neutrophils 0, Platelet Estimate DecreasedL, Platelet Morphology Normal, Polychromasia 1+, Hypochromasia 2+, Anisocytosis 4+, Macrocytosis 2+, Spherocytes 3+, Sodium Level 139, Potassium Level 3.8, Chloride Level 103, Carbon Dioxide Level 31, Anion Gap 5, Blood Urea Nitrogen 15, Creatinine 1.0, Estimat Glomerular Filtration Rate > 60, Glucose Level 99, Calcium Level 9.1 Current Medications Medications (Trade) Dose Ordered Sig/Luci Route PRN Reason Start Time Stop Time Status Last Admin Dose Admin Acetaminophen (Tylenol) 650 mg Q4H PRN ORAL FEVER 12/29/18 22:30 01/28/19 22:29 Albuterol/ Ipratropium (Albuterol/ Ipratropium) 3 ml EVERY 4 HOURS PRN HHN Shortness of Breath 12/29/18 22:30 01/03/19 22:29 Dextrose (Dextrose 50%) 25 ml Q30M PRN IV Hypoglycemia 12/29/18 20:30 01/28/19 20:18 Dextrose (Dextrose 50%) 50 ml Q30M PRN IV hypoglycemia 12/29/18 20:30 01/28/19 20:29 Diltiazem HCl (Cardizem) 10 mg EVERY HOUR PRN IV heart rate more than 120, 12/29/18 22:30 01/28/19 22:29 Enalaprilat (Vasotec) 2.5 mg Q6H PRN IV sbp more than 160 12/30/18 07:30 01/28/19 22:29 Heparin Sodium (Porcine) (Heparin 5000 units/ml) 5,000 units EVERY 12 HOURS SUBQ 12/30/18 21:00 01/29/19 20:59 Lorazepam (Ativan 2mg/ml 1ml) 0.5 mg Q4H PRN IV For Anxiety 12/29/18 20:15 01/05/19 20:14 Morphine Sulfate (Morphine Sulfate) 1 mg Q4H PRN IVP For Pain 12/29/18 20:15 01/05/19 20:14 Morphine Sulfate (Morphine Sulfate) 2 mg EVERY 4 HOURS PRN IVP severe Pain (Pain Scale 7-10) 12/29/18 22:30 01/05/19 22:29 Nitroglycerin (Ntg) 0.4 mg Q5M PRN SL Prn Chest Pain 12/29/18 22:30 01/28/19 22:29 Ondansetron HCl (Zofran) 4 mg Q6H PRN IVP Nausea & Vomiting 12/29/18 22:30 01/28/19 22:29 Polyethylene Glycol (Miralax) 17 gm DAILYPRN PRN ORAL Constipation 12/29/18 22:30 01/28/19 22:29 Temazepam (Restoril) 15 mg HSPRN PRN ORAL Insomnia 12/29/18 22:30 01/05/19 22:29 Sharon Garcia MD Jan 02, 2019 10:56
--- NOTE | 2019-01-02 11:00 | NUR ---
NURSE NOTES: Spoke to Tomasa Bill NP hematology about platelet 76 and the downward trend. States the cause is the mild hepatomegaly. The patient need to see his primary doctor in 1-2 weeks. patient is still cleared for discharge by hematology.
--- NOTE | 2019-01-02 11:10 | Cardiac Electrophysiology PN ---
Assessment/Plan Assessment/Plan 1. Chest pain. This is due to chest trauma. Troponins are negative. EKG does not show any acute ischemic changes. Echo no pericardial effusion. 2. History of hypertension. The patient is on p.r.n. enalapril 3. Severe anemia with hemoglobin in 6 range. Stool OB negative S/P EGD and colonoscopy by Dr Harper. S/P 2 units of PRBC FU Dr Juárez as well 4. Morbid obesity. 5. Low platelet. Heparin held. LOVE VARNER RN DC home with home health today Subjective Subjective EGD and colonoscopy that showed Hemorrhoid and Gastritis. No CP or SOB. Going home with home health today. In SR Objective Last 24 Hour Vital Signs Date Time Temp Pulse Resp B/P (MAP) Pulse Ox O2 Delivery O2 Flow Rate FiO2 01/02/19 09:00 Room Air 01/02/19 08:00 98.4 72 20 137/59 (85) 97 01/02/19 07:32 74 01/02/19 04:00 68 01/02/19 04:00 98.4 64 18 119/57 (77) 98 01/02/19 00:00 71 01/02/19 00:00 98.1 74 18 126/52 (76) 97 01/01/19 21:00 Room Air 01/01/19 20:00 89 01/01/19 20:00 98.7 86 18 138/79 (98) 99 01/01/19 19:23 74 18 96 Room Air 21 01/01/19 16:00 98.1 64 22 141/58 (85) 97 01/01/19 16:00 65 01/01/19 12:00 69 01/01/19 12:00 97.9 70 18 125/72 (89) 98 Intake and Output 01/01/19 01/02/19 18:59 06:59 Intake Total 480 ml Balance 480 ml Intake Oral 480 ml # Voids 2 3 Laboratory Tests Test 01/02/19 06:00 White Blood Count 3.4 K/UL (4.8-10.8) L Red Blood Count 2.28 M/UL (4.70-6.10) L Hemoglobin 9.2 G/DL (14.2-18.0) L Hematocrit 25.6 % (42.0-52.0) L Mean Corpuscular Volume 112 FL (80-99) H Mean Corpuscular Hemoglobin 40.4 PG (27.0-31.0) H Mean Corpuscular Hemoglobin Concent 36.0 G/DL (32.0-36.0) Red Cell Distribution Width 26.0 % (11.6-14.8) H Platelet Count 76 K/UL (150-450) L Mean Platelet Volume 7.1 FL (6.5-10.1) Neutrophils (%) (Auto) % (45.0-75.0) Lymphocytes (%) (Auto) % (20.0-45.0) Monocytes (%) (Auto) % (1.0-10.0) Eosinophils (%) (Auto) % (0.0-3.0) Basophils (%) (Auto) % (0.0-2.0) Differential Total Cells Counted 100 Neutrophils % (Manual) 31 % (45-75) L Lymphocytes % (Manual) 51 % (20-45) H Monocytes % (Manual) 5 % (1-10) Eosinophils % (Manual) 12 % (0-3) H Basophils % (Manual) 1 % (0-2) Band Neutrophils 0 % (0-8) Platelet Estimate Decreased L Platelet Morphology Normal Polychromasia 1+ Hypochromasia 2+ Anisocytosis 4+ Macrocytosis 2+ Spherocytes 3+ Sodium Level 139 MMOL/L (136-145) Potassium Level 3.8 MMOL/L (3.5-5.1) Chloride Level 103 MMOL/L (98-107) Carbon Dioxide Level 31 MMOL/L (21-32) Anion Gap 5 mmol/L (5-15) Blood Urea Nitrogen 15 mg/dL (7-18) Creatinine 1.0 MG/DL (0.55-1.30) Estimat Glomerular Filtration Rate > 60 mL/min (>60) Glucose Level 99 MG/DL (74-106) Calcium Level 9.1 MG/DL (8.5-10.1) Objective HEAD AND NECK: No JVD. LUNGS: Clear. CARDIOVASCULAR: Regular S1 and S2 with no gallop or murmur. ABDOMEN: Soft. EXTREMITIES: No pitting edema. Abiodun Rosas MD Jan 02, 2019 11:10
[2019-01-02 12:00] VITALS: BP 130/72
--- NOTE | 2019-01-02 12:30 | NUR ---
Home Discharge: Patient is being discharged. Awake, alert and oriented x 4. Patient vergbalize understanding of discharge instructions. patient states he will follow up with his primary doctor in 1/2 weeks. Patient is going to home with home health [facility] setup. Patient understood that [facility] will setup walker. Patient signed belonging checklist. All medical devices such as IV, heart monitor, and ID band were removed. Patient left via wheelchair with all personal belongings to [facility] for home.
--- NOTE | 2019-01-02 15:02 | NUR ---
P.T NOTE: LATE ENTRY 0945 P.T EVALUATION COMPLETED. PATIENT IS INDEPENDENT WITH ADL/FUNCTIONAL MOBILITIES AND GAIT/AMBULATION USING THE FWW. PATIENT'S CURRENT FUNCTIONAL STATUS DOES NOT WARRANT SKILLED P.T SERVICES PATIENT IS BASELINE INDEPENDENT. NO FURTHER SKILLED P.T FOLLOW UP NEEDED. RECOMMEND FOR PATIENT TO BE ISSUED A NEW FWW PATIENT'S FWW AT HOME IS OLD AND UNSTABLE . D/C P.T SERVICES. THANK YOU FOR THIS REFERRAL.
--- NOTE | 2019-01-03 10:55 | Hematology/Onc Progress Note ---
Assessment/Plan Assessment/Plan LATE ENTRY: 01/02/2019 # Pancytopenia -- multiple etiologies could be related to underlying liver disease (hepatosplenomegaly), medication-induced, infection versus viral syndrome --> peripheral smear has been ordered and does not show significant abnormalities --> Medications have been reviewed --> Continue to monitor for improvement, trend cbc --> Hep panel and HIV have been ordered--> neg --> reverse isolation if ANC is <2000 --> Give neupogen if ANC <1000 --> Transfuse if hgb <7, with 1 unit prbc --> consider bone marrow biopsy if no other causes are found --> Blood tx: 12/29, 12/30, # Coagulation defect, multifactorial usually related to poor PO intake versus medication and liver disease --> administer Vitamin K if patient is bleeding or FFP if the INR is >10 --> hold off on ffp unless active procedure/bleeding, first begin with vit K 10 --> mixing study as needed --> per GI eval EGD and COLO (refused) # Chest wall pain. Cardiology is following, appreciate recs --> serial ekg, troponin # History of hypertension # Morbid obesity The time the note is entered does not reflect the time the patient was exmanined. I greatly appreciate the consultation. Subjective Allergies: Coded Allergies: No Known Allergies (Unverified , 12/29/18) Subjective Subjective 12/31: is s/p egd and colo, results pending 01/02: pt seated in chair, wants to go home. Objective Objective Last 24 Hour Vital Signs Date Time Temp Pulse Resp B/P (MAP) Pulse Ox O2 Delivery O2 Flow Rate FiO2 01/02/19 12:00 98.4 74 19 130/72 (91) 100 01/02/19 09:50 70 20 98 Room Air 21 01/02/19 09:00 Room Air 01/02/19 08:00 98.4 72 20 137/59 (85) 97 01/02/19 07:32 74 01/02/19 04:00 68 01/02/19 04:00 98.4 64 18 119/57 (77) 98 01/02/19 00:00 71 01/02/19 00:00 98.1 74 18 126/52 (76) 97 01/01/19 21:00 Room Air 01/01/19 20:00 89 01/01/19 20:00 98.7 86 18 138/79 (98) 99 01/01/19 19:23 74 18 96 Room Air 21 01/01/19 16:00 98.1 64 22 141/58 (85) 97 01/01/19 16:00 65 01/01/19 12:00 69 01/01/19 12:00 97.9 70 18 125/72 (89) 98 Labs Test 12/31/18 19:45 01/01/19 06:07 01/02/19 06:00 Troponin I 0.003 ng/mL (0.000-0.056) White Blood Count 3.4 K/UL (4.8-10.8) 3.4 K/UL (4.8-10.8) Red Blood Count 2.16 M/UL (4.70-6.10) 2.28 M/UL (4.70-6.10) Hemoglobin 8.7 G/DL (14.2-18.0) 9.2 G/DL (14.2-18.0) Hematocrit 23.6 % (42.0-52.0) 25.6 % (42.0-52.0) Mean Corpuscular Volume 109 FL (80-99) 112 FL (80-99) Mean Corpuscular Hemoglobin 40.1 PG (27.0-31.0) 40.4 PG (27.0-31.0) Mean Corpuscular Hemoglobin Concent 36.7 G/DL (32.0-36.0) 36.0 G/DL (32.0-36.0) Red Cell Distribution Width 26.1 % (11.6-14.8) 26.0 % (11.6-14.8) Platelet Count 81 K/UL (150-450) 76 K/UL (150-450) Mean Platelet Volume 7.7 FL (6.5-10.1) 7.1 FL (6.5-10.1) Neutrophils (%) (Auto) % (45.0-75.0) % (45.0-75.0) Lymphocytes (%) (Auto) % (20.0-45.0) % (20.0-45.0) Monocytes (%) (Auto) % (1.0-10.0) % (1.0-10.0) Eosinophils (%) (Auto) % (0.0-3.0) % (0.0-3.0) Basophils (%) (Auto) % (0.0-2.0) % (0.0-2.0) Differential Total Cells Counted 100 100 Neutrophils % (Manual) 37 % (45-75) 31 % (45-75) Lymphocytes % (Manual) 48 % (20-45) 51 % (20-45) Monocytes % (Manual) 6 % (1-10) 5 % (1-10) Eosinophils % (Manual) 8 % (0-3) 12 % (0-3) Basophils % (Manual) 1 % (0-2) 1 % (0-2) Band Neutrophils 0 % (0-8) 0 % (0-8) Platelet Estimate Decreased Decreased Platelet Morphology Normal Normal Hypochromasia 2+ 2+ Anisocytosis 4+ 4+ Macrocytosis 1+ 2+ Spherocytes 2+ 3+ Sodium Level 143 MMOL/L (136-145) 139 MMOL/L (136-145) Potassium Level 4.0 MMOL/L (3.5-5.1) 3.8 MMOL/L (3.5-5.1) Chloride Level 106 MMOL/L (98-107) 103 MMOL/L (98-107) Carbon Dioxide Level 26 MMOL/L (21-32) 31 MMOL/L (21-32) Anion Gap 11 mmol/L (5-15) 5 mmol/L (5-15) Blood Urea Nitrogen 13 mg/dL (7-18) 15 mg/dL (7-18) Creatinine 1.0 MG/DL (0.55-1.30) 1.0 MG/DL (0.55-1.30) Estimat Glomerular Filtration Rate > 60 mL/min (>60) > 60 mL/min (>60) Glucose Level 100 MG/DL (74-106) 99 MG/DL (74-106) Calcium Level 9.1 MG/DL (8.5-10.1) 9.1 MG/DL (8.5-10.1) Polychromasia 1+ Height (Feet): 5 Height (Inches): 5.00 Weight (Pounds): 380 Objective Objective Physical Exam General Appearance: WD/WN Lines, tubes and drains: peripheral HEENT: normocephalic, atraumatic Neck: non-tender, normal alignment, supple Respiratory/Chest: chest wall non-tender, lungs clear Breasts: no masses Cardiovascular/Chest: normal peripheral pulses, regular rhythm Abdomen: normal bowel sounds Genitourinary/Rectal: normal genital exam Extremities: normal range of motion Tomasa Bill NP Jan 03, 2019 10:55
--- NOTE | 2019-01-03 19:05 | Discharge Summary ---
Discharge Summary Discharge Summary _ DATE OF ADMISSION: 12/29/2018 DATE OF DISCHARGE: 01/02/2019 DISCHARGED BY: Dr Zuluaga REASON FOR ADMISSION: 48 years old male with past medical history of asthma, hypertension, morbid obesity, was brought by EMS with chest discomfort. According to patient, onset of symptoms happened about 4 days ago. Patient reported recent trauma to his chest and stated that approximately 50 pound of tiles fell to the left side of his chest and struck him. Patient reported increased difficulty with breathing. Patient also reported prior history of chest discomfort, which he described as a central pressure. Upon evaluation vital signs reveal blood pressure 144/86. Pulse oximetry was stable on room air. Laboratory work-up revealed WBC 3.6, hemoglobin 6.9, hematocrit 18.5. Platelet count 99. INR 1.0. Stable electrolytes and renal parameters. Glucose 113. Total bilirubin 2.0, direct bilirubin 0.6. AST 67, ALT 57. Lipase 157. Troponin negative. Pro BNP 723. Urine toxicology screen was positive for marijuana. Chest x-ray demonstrated no acute cardiopulmonary pathology. X-ray of the ribs revealed negative left unilateral ribs series. Venous duplex bilateral lower extremity reveal no evidence of acute DVT. Patient admitted with diagnosis of chest pain, rule out acute coronary syndrome , anemia, morbid obesity. CONSULTANTS: upset welding machine operator Dr. Zelaya pulmonary Dr. Garcia GI specialist Dr. Harper hog buyer/oncologist Dr. Wheeler [facility]RSE: Patient admitted to telemetry floor. Pediatric Dental Hygienist closely followed. Serial troponin were negative. EKG revealed no acute ischemic changes. Patient was ruled out for acute myocardial infarction. Echocardiogram revealed no evidence of left ventricular hypertrophy. All cardiac chamber size appeared to be within normal limits. Study precluded analysis of LV wall motion and EF. Right ventricular systolic pressure of 20. Lipid panel stable. Per upset welding machine operator , chest pain was likely due to chest trauma. Pain management was addressed as needed. Blood pressure was closely monitored. Patient was on enalapril on as-needed basis. Supplemental oxygen was on board to keep pulse oximetry above 90%. Pulmonary toilet was ordered. No evidence of respiratory distress. Pulse oximetry stable on room air. Patient noted to have pancytopenia. Patient undergone transfusion of 2 units of packed red blood cells while in the hospital. Stool for occult blood was negative. Anemia work-up revealed stable iron, ferritin 734. Patient undergone upper endoscopy with biopsy and colonoscopy, which revealed gastritis and internal hemorrhoids. No active bleeding noted. At the time of this dictation, pathology report still pending. GI specialist recommended to follow-up with pathology report and treat accordingly as needed. GI prophylaxis provided. Porcelain Enamel Installer followed due to pancytopenia. Abdominal ultrasound revealed evidence of mild hepatosplenomegaly. Otherwise no acute pathology. Per hog buyer, pancytopenia could be related to underlying liver disease, versus medication induced versus infection versus viral syndrome. Peripheral smear did not show any significant abnormalities. Medication were reviewed. Hepatitis panel was negative. HIV test was nonreactive. Porcelain Enamel Installer recommended to monitor counts as outpatietn, and consider bone marrow biopsy if no other causes will be found and counts remain low. Patient also noted to have fibrinogen 429. Coagulation defect was likely multifactorial, related to poor oral intake versus medication versus liver disease. Supportive care provided. Patient was working with physical therapist. Chest wall pain improved. Patient was able to tolerate diet. Hemoglobin and hematocrit were closely monitored with goal to keep hemoglobin above 7. Prior to discharge hemoglobin 9.2, hematocrit 25.6, platelet count 76. WBC 3.4. Patient clinically stabilized and was ready for discharge home with home health services to follow. FINAL DIAGNOSES: Chest pain, likely due to chest trauma Hypertension Severe anemia, requiring blood transfusion Morbid obesity Status post EGD and colonoscopy Gastritis Internal hemorrhoids Marijuana user Pancytopenia Coagulation defect DISCHARGE MEDICATIONS: See Medication Reconciliation list. DISCHARGE INSTRUCTIONS: Patient was discharged home with home health services. Follow up with primary care provider in one week. I have been assigned to dictate discharge summary for this account. I was not involved in the patient's management. Beverley Faria NP Jan 03, 2019 19:05
== END 2019-01-02 12:44 | disposition home health service (06) | DRG 144 ==
LOC: EDBD 17:10 → EMR 17:46 → 2E 18:36 → EDBEDREQ 20:22 → 2E 12-31 01:50
PROC: 30233N1 Transfusion of Nonautologous Red Blood Cells into Peripheral Vein, Percutaneous Approach (ICD-10-PCS; principal; 2018-12-29)
PROC: 0DJD8ZZ Inspection of Lower Intestinal Tract, Via Natural or Artificial Opening Endoscopic (ICD-10-PCS; 2018-12-31)
PROC: 0DB78ZX Excision of Stomach, Pylorus, Via Natural or Artificial Opening Endoscopic, Diagnostic (ICD-10-PCS; 2018-12-31 11:10)
DX: S29.9XXA Unspecified injury of thorax, initial encounter (principal); D61.818 Other pancytopenia; D68.9 Coagulation defect, unspecified; E66.01 Morbid (severe) obesity due to excess calories; Z68.44 Body mass index [BMI] 60.0-69.9, adult; D69.6 Thrombocytopenia, unspecified; W20.8XXA Other cause of strike by thrown, projected or falling object, initial encounter; I10 Essential (primary) hypertension; D64.9 Anemia, unspecified; K29.70 Gastritis, unspecified, without bleeding; K64.8 Other hemorrhoids; J45.909 Unspecified asthma, uncomplicated
CPT/HCPCS: 36415; 71045; 76700; 80048; 80053; 80061; 80307; 82248; 82270; 82378; 82550; 82553; 82607; 82728; 82746; 83540; 83550; 83615; 83690; 83880; 84443; 84484; 85007; 85025; 85044; 85060; 85384; 85610; 85651; 85730; 86140; 86703; 86705; 86709; 86803; 86850; 86900; 86901; 86920; 87340; 93005; 93306; 93970; 94003; 94150; 94640; 94664; 96374; 96375; 99285; J2405